=== PATIENT | male | born 1960 | race Caucasian/White ===

== ENCOUNTER 2025-01-21 10:22 | Inpatient (IN) | payer OTHER, SELFPAY ==
--- NOTE | ~2025-01-21 | CT_ITS ---
CLINICAL HISTORY: perirectal abscess R side worsening after I+D CT abdomen and pelvis with contrast Comparison: None provided Findings: Small hiatal hernia. No consolidation or effusion. Few small calcified granulomas in the spleen. There is a small accessory splenule. Focal fat infiltration in segment 4B of the liver. Pancreas, gallbladder and adrenal glands are within normal limits. No hydronephrosis. Symmetric contrast enhancement of the kidneys. Nonspecific mild bilateral perinephric stranding. Colonic diverticulosis without acute inflammation. No bowel obstruction, pneumatosis or pneumoperitoneum. Subcutaneous left gluteal phlegmon without rim enhancing abscess. No communication with the rectum or anus. No subcutaneous gas. Pelvic organs are within normal limits. Normal appendix. No acute fracture. Degenerative changes of the spine. IMPRESSION: Subcutaneous left gluteal phlegmon without rim enhancing abscess. No communication with the rectum or anus. No subcutaneous gas. This document has been electronically signed by: Leann Caldwell MD on 01/21/2025 19:12:26
--- NOTE | ~2025-01-21 | US_ITS ---
EXAMINATION: US RETROPERITONEAL LIMITED (RENAL ONLY) CLINICAL INFORMATION: New JOSEPH. COMPARISON: Correlated to CT dated January 21, 2025 TECHNIQUE: Real-time ultrasound kidneys using grayscale technique. FINDINGS: RIGHT KIDNEY: 12 x 6 x 6 cm (SAG x AP x TRV). Normal echotexture. Normal renal cortical thickness. No hydronephrosis. No gross solid or cystic lesion. LEFT KIDNEY: 13 x 6 x 5 cm (SAG x AP x TRV). Normal echotexture. No renal cortical thickness. No hydronephrosis. No gross solid or cystic lesion detected. US/US renal BI IMPRESSION: No hydronephrosis.. Electronically signed by: Juan Rabago MD 01/25/2025 09:48 AM EDT
[2025-01-21 10:25] VITALS: BP 143/76; PULSE 88; RESP 18; TEMP 36.6; O2SAT 98; BMI 27.1
[2025-01-21 10:42] LABS: Hematocrit 39.6 % (42.0-52.0); Hemoglobin 14.6 g/dl (14.0-18.0); Imm Gran Abs Auto 0.06 X10*3/uL (0.00-0.03); Imm Gran Pct Auto 0.5 % (0.0-0.4); Lymphocytes Absolute Auto 0.9 X10*3/uL (1.2-4.9); MANUAL DIFF FLAG SCAN; Mean Corpuscular HGB Conc 36.9 g/dl (31.0-36.0); Mean Corpuscular Hemoglobin 34.9 pg (27.0-33.0); Mean Corpuscular Volume 94.7 fL (80.0-98.0); NRBC Abs Auto 0.000 X10*3/uL (0.0-0.012); NRBC Pct Auto 0.0 /100WBC (0.0-0.2); Platelet Count 235 X10*3/uL (160-400); Red Blood Count 4.18 X10*6/uL (4.60-5.80); SCAN SMEAR FLAG 1; White Blood Count 13.2 X10*3/uL (4.8-10.8)
[2025-01-21 10:54] LABS: Anion Gap 14 (12-20); Blood Urea Nitrogen 5 mg/dL (9-16); Calcium 9.1 mg/dL (8.4-10.2); Carbon Dioxide 25 mmol/L (22-29); Chloride 91 mmol/L (96-108); Creatinine Clr Calc Pharmacy 126.0; Estimated Glomerular Filt Rate > 60; Potassium 4.4 mmol/L (3.3-5.1); Sodium 126 mmol/L (135-145)
[2025-01-21 11:52] LABS: Alanine Aminotransferase 39 U/L (0-40); Albumin Level 4.6 g/dL (3.5-5.0); Alkaline Phosphatase 70 U/L (39-117); Aspartate Amino Transferase 51 U/L (5-37); Total Protein 7.8 g/dL (6.5-8.0)
--- NOTE | 2025-01-21 12:10 | ED.WOUNDLAC ---
HPI - Wound/Laceration General Chief Complaint: Wound/Laceration Stated Complaint: Cellulitis of Buttocks states its infected Time Seen by Provider: 01/21/25 16:23 Source: patient and old records reviewed Mode of arrival: ambulatory Limitations: no limitations History of Present Illness ED Provider: ELENO HPI narrative: 65 yo male with PMH of HTN takes lisinopril, ETOH use disorder - denies prior withdrawal drank a few this AM he drinks 12+ beers a day. He notes 5 days of worsening boil on L buttock he went to urgent care yesterday s/p I+D with 3 doses of Augmentin so far. He arrives shaky but denies n/v and fevers. He notes he was sent again by UC today as they note it appears worse and are worried about deeper collection. Onset (ago): day(s) (5) Location: other (left buttock) Place: home Patient tetanus UTD: Yes Context: other Associated symptoms: pain Treatments prior to arrival: bandage and other (oral augmentin x 3) Related Data Allergies Allergy/AdvReac Type Severity Reaction Status Date / Time No Known Allergies Allergy Verified 01/21/25 10:29 Review of Systems Review of Systems: Constitutional : No Fever, No Chills ENT/Mouth : No sore throat, No Rhinorrhea Eyes: No Eye Pain, No Swelling, No Redness Cardiovascular : No Chest Pain, No SOB Respiratory : No Cough, No Sputum Gastrointestinal : No Nausea, No Vomiting, No Diarrhea, No abdominal Pain Genitourinary : No Dysuria, No Hematuria Musculoskeletal : No joint pain, No Myalgias, No Joint Swelling Skin : No Skin Lesions, positive skin rash Neuro : No Weakness, No Numbness, No Headache Psych : No Anxiety, No Depression Heme/Lymph: No Bruising, No Bleeding,No Lymphadenopathy Endocrine : No Polyuria, No Polydipsia All other systems reviewed and are negative [facility] Past Medical History Attestation statement: The following information was validated with the patient. Source: old records reviewed Medical History (Updated 01/21/25 @ 17:10 by Keturah Chauhan DO) Alcohol use disorder HTN (hypertension) Social History Social History (Updated 01/21/25 @ 17:03 by Keturah Chauhan DO) Patient Tobacco Use Status: Never used Tobacco Advance Directives: No Advance Directives Information Provided: Yes Do you have a plan to hurt others: No Plan Physical Exam Vital Signs: Vital Signs: Last Vital Signs Temp 98.2 F 01/21/25 17:21 Pulse 79 01/21/25 17:21 Resp 16 01/21/25 17:21 BP 155/91 H 01/21/25 17:21 Pulse Ox 97 01/21/25 17:21 O2 Del Method Room Air 01/21/25 17:21 BMI result Body Mass Index 27.1 Appearance: Alert. Oriented X3. Mild acute distress. Eyes: Pupils equal, round and reactive to light. ENT: Pharynx normal. Tongue fasciculations Neck: Normal inspection. Neck supple. CVS: tachycardic heart rate and rhythm. Pulses normal. Respiratory: No respiratory distress. Breath sounds normal. Abdomen: Soft and nontender. Buttocks: L buttock large indurated area with packing and still purulence noted very ttp no crepitus and no necrosis noted Skin: Skin warm and dry. Normal skin color. Extremities: No lower extremity edema. Neuro: Oriented X 3. No motor deficit. No sensory deficit. CN2-12 intact Course Course Course Narrative: 01/21 1210 Melina Sanchez APRN This is a rapid medical exam. Defer additional HPI, ROS and PE to primary provider. This is a 65-year-old male who has a past medical history of hypertension, GERD, daily alcohol use who presents the ER with complaints of abscess in the left buttocks for several days. Patient reports that he was seen at urgent care yesterday and had an incision and drainage of the left buttocks. He was placed on antibiotic and he has taken 3 doses of the antibiotic. He went today for a wound check per instruction of the urgent care and they felt that there was increased redness and swelling of the area which tract towards the scrotal region. Therefore patient was referred into the emergency room. Will order lab including blood cultures, lactic acid. VSS Medications Administered Discontinued Medications Generic Name Dose Route Start Last Admin Trade Name Freq PRN Reason Stop Dose Admin Diazepam 5 mg 01/21/25 16:34 01/21/25 17:02 Diazepam 10 Mg/2 Ml Cartridge IVPUSH 01/21/25 16:35 5 mg STAT STA Administration Lactated Ringer's 1,000 mls @ 999 mls/hr 01/21/25 16:34 01/21/25 17:01 Lr IV 01/21/25 17:34 999 mls/hr .Q1H1M ONE Administration Piperacillin Sod/Tazobactam 50 mls @ 100 mls/hr 01/21/25 16:34 01/21/25 19:04 Sod 3.375 gm/ Sodium Chloride IV 01/21/25 17:03 Infused ONCE ONE Infusion Thiamine HCl 200 mg/ Sodium 102 mls @ 204 mls/hr 01/21/25 16:34 01/21/25 19:04 Chloride IV 01/21/25 17:03 Infused ONCE ONE Infusion Magnesium Sulfate 2 gm in 50 mls @ 25 mls/hr 01/21/25 16:34 01/21/25 18:08 Magnesium Sulfate/H2o IV 01/21/25 18:33 25 mls/hr ONCE ONE Administration Vancomycin HCl 2,000 mg in 500 mls @ 250 mls/hr 01/21/25 16:34 01/21/25 19:28 Vancomycin/Ns IV 01/21/25 18:33 250 mls/hr ONCE ONE Administration Iohexol 100 ml 01/21/25 17:53 01/21/25 17:53 Iohexol 350 Mg/Ml 100 Ml Infus..Btl IV 01/21/25 17:54 85 ml ONCE ONE Administration Phenobarbital Sodium 310 mg 01/21/25 17:00 01/21/25 19:25 Phenobarbital Sodium 130 Mg/Ml Im Once IM 01/21/25 17:01 310 mg ONCE ONE Administration Medical Decision Making Medical Decision Making MDM Narrative: 65 yo male with PMH of HTN takes lisinopril, ETOH use disorder here with c/o abscess that will need CT scan for deeper infection. I am also worried about his ETOH withdrawal symptoms I am going to start IV abx for abscess, IV thiamine, IV magnesium, IV valium, phenobarb protocol. He likely has abscess. His Na is likely low from beer potomania - gentle fluids ordered. Planned admit Differential Diagnosis Differential Diagnoses: The differential diagnosis associated with the presentation includes ETOh use disorder, withdrawal, lyte abnormality, abscess Admission/Observation Consideration of admission/observation: Escalation of care including admission/observation considered needs admission for low Na, ETOH withdrawal, abscess with IV abx Consult Healthcare Provider Management of the patient was discussed with: Hospitalist Lab Data MDM Lab Attestation statement: I reviewed the patient's lab results. 01/21/25 10:34 01/21/25 10:34 Labs: Lab Results 01/21/25 01/21/25 Range/Units 10:34 11:30 WBC 13.2 H (4.8-10.8) X10*3/uL RBC 4.18 L (4.60-5.80) X10*6/uL Hgb 14.6 (14.0-18.0) g/dl Hct 39.6 L (42.0-52.0) % MCV 94.7 (80.0-98.0) fL MCH 34.9 H (27.0-33.0) pg MCHC 36.9 H (31.0-36.0) g/dl RDW 12.2 (11.0-16.0) % Plt Count 235 (160-400) X10*3/uL MPV 8.9 L (9.4-12.4) fL Immature Gran % (Auto) 0.5 H (0.0-0.4) % Neut % (Auto) 77.9 H (45-73) % Lymph % (Auto) 6.8 L (20-40) % [place] % (Auto) 14.1 H (2-11) % Eos % (Auto) 0.2 (0-4) % Baso % (Auto) 0.5 (0-2) % Lymph # (Auto) 0.9 L (1.2-4.9) X10*3/uL [place] # (Auto) 1.9 H (0.1-1.2) X10*3/uL Eos # (Auto) 0.0 (0.0-0.4) X10*3/uL Baso # (Auto) 0.1 (0.0-0.2) X10*3/uL Abs Immat Gran (auto) 0.06 H (0.00-0.03) X10*3/uL Absolute Neuts (auto) 10.2 H (2.0-8.3) x10*3/uL Absolute Nucleated RBC 0.000 (0.0-0.012) X10*3/uL Nucleated RBC % (auto) 0.0 (0.0-0.2) /100WBC Smear Tech's Comments VERIFIED Sodium 126 L (135-145) mmol/L Potassium 4.4 (3.3-5.1) mmol/L Chloride 91 L (96-108) mmol/L Carbon Dioxide 25 (22-29) mmol/L Anion Gap 14 (12-20) BUN 5 L (9-16) mg/dL Creatinine 0.65 (0.5-1.4) mg/dL Estim Creat Clear Calc 126.0 Estimated GFR > 60 Random Glucose 109 (60-115) mg/dL Lactic Acid 1.5 (0.5-2.0) mmol/L Calcium 9.1 (8.4-10.2) mg/dL Total Bilirubin 2.4 H (0.0-1.0) mg/dL Direct Bilirubin 0.7 H (0.0-0.5) mg/dL AST 51 H (5-37) U/L ALT 39 (0-40) U/L Alkaline Phosphatase 70 (39-117) U/L C-Reactive Protein 8.17 H (< or = 0.50) mg/dL Total Protein 7.8 (6.5-8.0) g/dL Albumin 4.6 (3.5-5.0) g/dL Ethyl Alcohol 114 mg/dL Independent Interpretation I performed an independent interpretation of an: EKG and CT Scan Interpretation: Rate: 78 Rhythm: NSR [place]: normal Normal P waves. Normal ZACHARY. Normal QRS complex. ST T wave : normal no SUZI qTC: 460 prior studies: no acute ischemia The study has been interpreted contemporaneously by me. . Radiology Impression Discussion of test interpretation with radiology: I have reviewed the radiologist's reading. External Record Review External record reviewed: Outpatient record Critical Care Time Critical Care Time Critical Care Time: Yes Total Critical Care Time: 45 Attestation: Time is exclusive of separately billable procedures. Time includes: direct patient care, patient reassessment, coordination of patient care, interpretation of data (laboratory data, pulse oximetry, arterial blood gases and chest xrays), review of patient's medical records, medical consultation and documentation of patient care. IV magnesium, phenobarb protocol. Procedures excluded from critical care time: electrocardiography. Discharge Plan Discharge Clinical Impression: Acute hyponatremia, Alcohol abuse with withdrawal, Abscess Patient Disposition: Admitted As Inpatient Print Language: Latvian
[2025-01-21] MEDS: Lactated Ringers 1,000 ML 999 ML IV (17:01)
[2025-01-21] MEDS: diazePAM 10 MG/2 ML CARTRIDGE 5 MG IVPUSH (17:02)
[2025-01-21] MEDS: Thiamine HCL 200 MG in 0.9 % Sodium Chloride 100 ML 204 MG IV (17:07)
--- NOTE | 2025-01-21 17:09 | ECG_ITS ---
Test Reason : ETOH withdrawal Blood Pressure : */* mmHG Vent. Rate : 78 BPM Atrial Rate : 78 BPM P-R Int : 166 ms QRS Dur : 118 ms QT Int : 404 ms P-R-T Axes : 40 21 39 degrees QTcB Int : 460 ms Normal sinus rhythm Non-specific intra-ventricular conduction delay Borderline ECG No previous ECGs available Referred By: Keturah Chauhan Electronically Signed By: Chang Rice
[2025-01-21 17:21] VITALS: BP 155/91; PULSE 79; RESP 16; TEMP 36.8; O2SAT 97
[2025-01-21] MEDS: iohexoL 350 MG/ML 100 ML INFUS..BTL IV (17:53)
[2025-01-21 18:00] VITALS: BP 158/86; PULSE 87; RESP 15; TEMP 37.2; O2SAT 100
[2025-01-21] MEDS: Magnesium Sulfate/H2O 2 GM/50 ML PIGGYBACK IV (18:08)
[2025-01-21] MEDS: PHENobarbitaL sodium 130 MG/ML IM ONCE 310 MG IM (19:25)
[2025-01-21] MEDS: vancomycin/NS 2,000 MG/500 ML PLAST..BAG 250 MG IV (19:28)
--- NOTE | 2025-01-21 20:22 | PHA.MEDREC ---
Addendum entered by Maryann Correa RPh 01/21/25 20:23: MED REC REVIEWED BY [facility] Original Note: Pharmacy Consult ? Medication Reconciliation Pharmacy has completed the medication reconciliation. Spoke to patient to confirm med list.
[2025-01-21 20:37] VITALS: BP 138/81; PULSE 71; RESP 15; TEMP 37; O2SAT 95
--- NOTE | 2025-01-21 20:47 | PC.NURSE ---
RN assumed care for pt at 1900. Meds were given per AUG.
--- NOTE | 2025-01-21 21:03 | PC.NURSE ---
RN called pharmacy to reschedule phenobarb on AUG as first dose was given after the scheduled time. Pharmacist to change time of the other doses.
--- NOTE | 2025-01-21 21:52 | PM.IMHP ---
History of Present Illness Date of Service: 01/21/25 Attending physician on admission: Mallory Rhoades Chief Complaint: Worsening abscess Patient is a 65-year-old male with a past medical history significant for hypertension and alcohol abuse, who presented to the ED due to a worsening abscess in the left gluteal cleft that was drained yesterday at urgent care after having it for 5 days. The patient followed up today for wound packing change and recheck and he was told that surrounding redness has increased and they recommended he report to the emergency department. He was taking augmentin and has taken 3 doses. He denies any increased pain, fever, chills, nausea or vomiting. He drinks about 12 beers a day, last consumed a few this morning. no hx of etoh withdrawal or seizures. reports that he was hospitalized for 2 knee surgeries and has not had withdrawal during either stay. Review of Systems Constitutional: Constitutional: Denies chills, Denies fatigue, Denies fever(s) and Denies headache(s) Eyes: Eyes: Denies change in vision ENT: Denies headache(s), Denies nasal discharge and Denies sore throat Cardiovascular: Cardiovascular: Denies chest pain, Denies rapid heart rate, Denies leg edema, Denies lightheadedness and Denies dyspnea Respiratory: Respiratory: Denies chest congestion, Denies cough, Denies dyspnea and Denies wheezing Gastrointestinal: Gastrointestinal: Denies abdominal pain, Denies diarrhea, Denies nausea and Denies vomiting Genitourinary: Genitourinary: Denies dysuria, Denies urinary frequency and Denies urinary urgency Musculoskeletal: Musculoskeletal: Denies myalgias Integumentary/Breasts: Skin/Breast: Reports as per HPI Neurologic: Denies confusion and Denies headache(s) Psychiatric: Psychiatric: Denies confusion Endocrine: Endocrine: Denies fatigue Hematologic/Lymphatic: Hematologic/Lymphatic: Denies easy bleeding and Denies easy bruising Allergic/Immunologic: Allergic/Immunologic: Denies wheezing PMFSH Medical History Alcohol use disorder HTN (hypertension) Functional capacity: independent ambulation Social History (Updated 01/21/25 @ 17:03 by Keturah Chauhan DO) Patient Tobacco Use Status: Never used Tobacco Advance Directives: No Advance Directives Information Provided: Yes Do you have a plan to hurt others: No Plan Nutrition Risks: No Nutritional Risk Narrative: No smoking or drug use. Consumes 12+ beers daily Meds Allergies Allergy/AdvReac Type Severity Reaction Status Date / Time No Known Allergies Allergy Verified 01/21/25 10:29 Active Medications: Current Medications Acetaminophen (Acetaminophen 325 Mg Tablet) 650 mg PO Q6H PRN PRN Reason: Pain, Mild 1-3,fever,headache Calcium Carbonate (Calcium Carbonate 750 Mg Tab.Chew) 750 mg PO Q4H PRN PRN Reason: Heartburn Enoxaparin Sodium (Enoxaparin Sodium 40 Mg/0.4 Ml Syringe) 40 mg SUBCUT Q24H [facility] Folic Acid (Folic Acid 1 Mg Tablet) 1 mg PO DAILY [facility] Stop: 01/25/25 08:59 Lisinopril (Lisinopril 20 Mg Tablet) 20 mg PO DAILY [facility]; Protocol Magnesium Hydroxide (Milk Of Magnesia 30 Ml Oral.Susp) 30 ml PO DAILY PRN PRN Reason: Constipation Melatonin (Melatonin 3 Mg Tablet) 6 mg PO BEDTIME PRN PRN Reason: Insomnia Multivitamins/Vitamin C (Multivitamin Tablet) 1 tab PO DAILY [facility] Stop: 01/25/25 08:59 Omeprazole (Omeprazole 20 Mg Capsule.Dr) 20 mg PO DAILY [facility] Ondansetron HCl (Ondansetron Hcl 4 Mg/2 Ml Vial) 4 mg IVPUSH Q8H PRN PRN Reason: Nausea and Vomiting Oxycodone HCl (Oxycodone Hcl Immed Release 5 Mg Tablet) 5 mg PO Q6H PRN PRN Reason: Pain, Severe (Pain Scale 7-10) Pharmacy Consult (Consult Rx Etoh Phenob Im/Po) 1 each MISCELLANE ONCE PRN; Protocol PRN Reason: Consult order Phenobarbital (Phenobarbital 30 Mg Tablet) 60 mg PO BID [facility] Stop: 01/23/25 21:01 Phenobarbital (Phenobarbital 30 Mg Tablet) 30 mg PO BID [facility] Stop: 01/25/25 21:01 Phenobarbital (Phenobarbital 30 Mg Tablet) 30 mg PO DAILY [facility] Stop: 01/27/25 09:01 Phenobarbital Sodium (Phenobarbital Sodium 130 Mg/Ml Vial Im Q3hx2) 232 mg IM Q3H [facility] Stop: 01/22/25 01:31 Sodium Chloride (0.9 % Sodium Chloride Flush 3 Ml Syringe) 3 ml IVFLUSH QSHIFT [facility] Thiamine HCl (Thiamine Hcl 100 Mg Tablet) 100 mg PO DAILY [facility] Stop: 01/25/25 08:59 Home Medications ?Medication ?Instructions ?Recorded ?Confirmed ?Last Taken ?Type amoxicillin 875 mg-potassium 1 tab PO BID 01/21/25 01/21/25 01/21/25 History clavulanate 125 mg tablet lisinopril 20 mg tablet 20 mg PO DAILY 01/21/25 01/21/25 01/21/25 History omeprazole 20 mg tablet,delayed 20 mg PO DAILY 01/21/25 01/21/25 01/21/25 History release Physical Exam Vital Signs and Narrative: Vital Signs: Last Vital Signs Temp 98.6 F 01/21/25 20:37 Pulse 71 01/21/25 20:37 Resp 15 01/21/25 20:37 BP 138/81 01/21/25 20:37 Pulse Ox 95 01/21/25 20:37 O2 Del Method Room Air 01/21/25 20:37 BMI result Body Mass Index 27.1 General: AOx3, no acute distress Resp: CTA bilaterally CVS: S1, S2, RRR GI: +BS, NT, no distention Skin: Warm, dry. erythema without extension past the border drawn by urgent care. painful to touch, mild increased warmth. dressing with serosanguineous fluid, no purulent fluid. Wound packing in place. Dressing changed. Neuro: Cranial nerves II-XII grossly intact bilaterally. Motor grossly intact bilaterally Extremities: No LE edema Psych: Appropriate affect Const: General: No confusion Orientation/consciousness: No confusion Neuro: General: No confusion Results Labs 01/21/25 10:34 01/21/25 10:34 Labs: Laboratory Results - last 24 hr 01/21/25 01/21/25 10:34 11:30 MCV 94.7 MCH 34.9 H MCHC 36.9 H RDW 12.2 Plt Count 235 MPV 8.9 L Immature Gran % (Auto) 0.5 H Neut % (Auto) 77.9 H Lymph % (Auto) 6.8 L [place] % (Auto) 14.1 H Eos % (Auto) 0.2 Baso % (Auto) 0.5 Lymph # (Auto) 0.9 L [place] # (Auto) 1.9 H Eos # (Auto) 0.0 Baso # (Auto) 0.1 Abs Immat Gran (auto) 0.06 H Absolute Neuts (auto) 10.2 H Absolute Nucleated RBC 0.000 Nucleated RBC % (auto) 0.0 Smear Tech's Comments VERIFIED Anion Gap 14 Estim Creat Clear Calc 126.0 Estimated GFR > 60 Random Glucose 109 Lactic Acid 1.5 Calcium 9.1 Total Bilirubin 2.4 H Direct Bilirubin 0.7 H AST 51 H ALT 39 Alkaline Phosphatase 70 C-Reactive Protein 8.17 H Total Protein 7.8 Albumin 4.6 Ethyl Alcohol 114 Assessment and Plan (1) Cellulitis: Status: Acute (2) Acute hyponatremia: Status: Acute (3) Alcohol abuse with withdrawal: Status: Acute (4) Hypomagnesemia: Status: Acute Plan Patient is a 65-year-old male with a past medical history significant for hypertension and alcohol abuse, who presented to the ED due to a worsening abscess in the left gluteal cleft that was drained yesterday at urgent care after having it for 5 days. cellulitis - recent I+D of abscess L gluteal cleft yesterday at urgent care with failed outpt abx, extension past border on recheck this morning - WBC 13.2, vitals stable, lactic acid normal, blood cultures x2 pending, no sepsis - abdominopelvic CT with subcutaneous left gluteal phlegmon without rim enhancing abscess. No communication with the rectum or anus. No subcutaneous gas. - CRP elevated at 8.17 - EKG with NSR - patient given 1 L LR in ED - started on vancomycin and Zosyn, continue - wound care consult - follow CBC and BMP Acute hyponatremia and hypochloremia - hyponatremia likely secondary to beer potomania - sodium 126, chloride 91 - given 1 L LR in ED - monitor BMP Alcohol abuse with withdrawal - alcohol level 114 - patient exhibiting symptoms of withdrawal in ED with CIWA scores elevated - started on phenobarb - given IV thiamine - monitor CIWA - seizure precautions - addiction med consult - folic acid, thiamine, multivitamin daily - monitor on telemetry - alcohol cessation encouraged Hypomagnesemia - secondary to alcohol use - repleted with 2 g IV HTN - continue lisinopril DNI, discussed with patient VTE prophylaxis: Lovenox Patient with cellulitis with failed outpatient treatment, complicated by alcohol withdrawal, requiring admission for at least 2 midnights stay for IV antibiotics and monitoring. Quality Stroke Does the patient have a stroke diagnosis?: No VTE Prior VTE?: No VTE Risk Level:: Medical - moderate - high VTE Device Contraindication: Treatment Not Indicated VTE Drug Contraindication: N/A - Med Ordered
[2025-01-21 22:00] VITALS: BP 130/80; PULSE 80; RESP 15; TEMP 36.8; O2SAT 99
--- NOTE | 2025-01-21 22:40 | PHA.PROG ---
Admission Date/Time: January 21, 2025 19:24 Indication: Skin Weight in k.718 kg Adjusted body weight in Kg: [place] body weight in Kg: Obesity Dosing Indication % IBW: Serum Creatinine - Last 168 Hours 01/21/25 10:34 Creatinine 0.65 Estimated CrCl and GFR - Last 168 Hours 01/21/25 10:34 Estim Creat Clear Calc 126.0 Estimated GFR > 60 Vancomycin Loading Dose: 2000 mg Current Vancomycin Dosing Regimen: 1250 mg Q12H Vancomycin Monitoring using AUC goal of 400 - 600 range with trough as surrogate marker: Predicted AUC 469 and trough 14 Date and Time for next Vancomycin Level to be drawn: 01/23 @0600 Pharmacist Comments on Vancomycin Plan: Vancomycin dosing will take advantage of [employer] as a clinical decision support tool that uses Bayesian modeling to calculate individual patient's pharmacokinetic parameters and forecast the patient's drug concentration time course with the target goal AUC 24 range of 400 - 600 mg/L/hr.
[2025-01-21] MEDS: 0.9 % Sodium Chloride Flush 3 ML SYRINGE IVFLUSH (23:57)
[2025-01-21] MEDS: PHENobarbitaL sodium 130 MG/ML VIAL IM Q3Hx2 232 MG IM (23:57)
[2025-01-22] VITALS (7 sets, daily range): BP systolic 129–162; BP diastolic 80–94; PULSE 55–87; RESP 14–18; TEMP 36–37.1; O2SAT 95–99; BMI 27.7
[2025-01-22] MEDS: PHENobarbitaL sodium 130 MG/ML VIAL IM Q3Hx2 232 MG IM (02:08)
--- NOTE | 2025-01-22 05:11 | HO.SKINPHOTO ---
Location: L inner glute Category: Stage: Length: Width: Depth: cm Location: Category: Stage: Length: Width: Depth: cm Location: Category: Stage: Length: Width: Depth: cm Location: Category: Stage: Length: Width: Depth: cm Location: Category: Stage: Length: Width: Depth: cm Location: Category: Stage: Length: Width: Depth: cm
[2025-01-22 07:13] LABS: Hematocrit 38.4 % (42.0-52.0); Hemoglobin 14.2 g/dl (14.0-18.0); Imm Gran Abs Auto 0.05 X10*3/uL (0.00-0.03); Imm Gran Pct Auto 0.7 % (0.0-0.4); Lymphocytes Absolute Auto 0.9 X10*3/uL (1.2-4.9); MANUAL DIFF FLAG SCAN; Mean Corpuscular HGB Conc 37.0 g/dl (31.0-36.0); Mean Corpuscular Hemoglobin 34.8 pg (27.0-33.0); Mean Corpuscular Volume 94.1 fL (80.0-98.0); NRBC Abs Auto 0.000 X10*3/uL (0.0-0.012); NRBC Pct Auto 0.0 /100WBC (0.0-0.2); PLT CLUMP 1; Red Blood Count 4.08 X10*6/uL (4.60-5.80); SCAN SMEAR FLAG 1
[2025-01-22 07:16] LABS: Anion Gap 17 (12-20); Blood Urea Nitrogen 4 mg/dL (9-16); Calcium 8.8 mg/dL (8.4-10.2); Carbon Dioxide 22 mmol/L (22-29); Chloride 97 mmol/L (96-108); Creatinine Clr Calc Pharmacy 132.1; Estimated Glomerular Filt Rate > 60; Potassium 4.8 mmol/L (3.3-5.1); Sodium 131 mmol/L (135-145)
[2025-01-22 07:28] LABS: Platelet Count 218 X10*3/uL (160-400); White Blood Count 7.3 X10*3/uL (4.8-10.8)
--- NOTE | 2025-01-22 07:28 | P.PNIM_ITS ---
Subjective Subjective Date of Service: 01/22/25 Interval History: Seen and examined this morning Interval history: Denies pain. Ongoing copious drainage. S/p I&D 2 days ago. Now on IV antibiotics. History alcohol use disorder, denies withdrawal symptoms. Review of Systems Review of Systems: Yes all other systems are reviewed and are negative Physical Exam 2 Exam: Exam: Constitutional - Awake and Alert, No apparent distress Eyes - PERRLA, EOMI Cardiovascular - S1S2, RRR, No edema Respiratory - Normal lung expansion, Normal respiratory effort, No respiratory distress, CTA bilaterally Extremities - no calf tenderness bilaterally, no swelling Skin - Warm/Dry . Golfball sized draining abscess with surrounding erythema with purulent drainage centrally as well as punctate areas of fluctuance the left gluteal cleft Neurological - Alert & oriented x3, CN II-XII in tact, 5/5 strength BUE and BLE Psychological - Appropriate affect Vital Signs: Vital Signs: Last Vital Signs Temp 98.7 F 01/22/25 06:00 Pulse 65 01/22/25 06:00 Resp 15 01/22/25 06:00 BP 134/87 01/22/25 06:00 Pulse Ox 95 01/22/25 06:00 O2 Del Method Room Air 01/22/25 06:00 BMI result Body Mass Index 27.1 Objective Data Active Medications Acetaminophen (Acetaminophen 325 Mg Tablet) 650 mg PO Q6H PRN PRN Reason: Pain, Mild 1-3,fever,headache Calcium Carbonate (Calcium Carbonate 750 Mg Tab.Chew) 750 mg PO Q4H PRN PRN Reason: Heartburn Enoxaparin Sodium (Enoxaparin Sodium 40 Mg/0.4 Ml Syringe) 40 mg SUBCUT Q24H [facility] Last Admin: 01/21/25 23:56 Dose: 40 mg Documented By: GERDA Folic Acid (Folic Acid 1 Mg Tablet) 1 mg PO DAILY [facility] Stop: 01/25/25 08:59 Piperacillin Sod/Tazobactam (Sod 3.375 gm/ Sodium Chloride) 50 mls @ 100 mls/hr IV Q6H [facility] Last Admin: 01/22/25 06:04 Dose: 100 mls/hr Documented By: CHARLI Vancomycin HCl 1,250 mg/ (Sodium Chloride) 250 mls @ 166.667 mls/hr IV Q12H [facility] Lisinopril (Lisinopril 20 Mg Tablet) 20 mg PO DAILY [facility]; Protocol Magnesium Hydroxide (Milk Of Magnesia 30 Ml Oral.Susp) 30 ml PO DAILY PRN PRN Reason: Constipation Melatonin (Melatonin 3 Mg Tablet) 6 mg PO BEDTIME PRN PRN Reason: Insomnia Multivitamins/Vitamin C (Multivitamin Tablet) 1 tab PO DAILY [facility] Stop: 01/25/25 08:59 Omeprazole (Omeprazole 20 Mg Capsule.Dr) 20 mg PO DAILY [facility] Ondansetron HCl (Ondansetron Hcl 4 Mg/2 Ml Vial) 4 mg IVPUSH Q8H PRN PRN Reason: Nausea and Vomiting Oxycodone HCl (Oxycodone Hcl Immed Release 5 Mg Tablet) 5 mg PO Q6H PRN PRN Reason: Pain, Severe (Pain Scale 7-10) Pharmacy Consult (Consult Rx Etoh Phenob Im/Po) 1 each MISCELLANE ONCE PRN; Protocol PRN Reason: Consult order Pharmacy Consult (Consult Rx Vancomycin Dosing) 1 each MISCELLANE DAILY PRN PRN Reason: Consult order Phenobarbital (Phenobarbital 30 Mg Tablet) 60 mg PO BID [facility] Stop: 01/23/25 21:01 Phenobarbital (Phenobarbital 30 Mg Tablet) 30 mg PO BID [facility] Stop: 01/25/25 21:01 Phenobarbital (Phenobarbital 30 Mg Tablet) 30 mg PO DAILY [facility] Stop: 01/27/25 09:01 Sodium Chloride (0.9 % Sodium Chloride Flush 3 Ml Syringe) 3 ml IVFLUSH QSHIFT [facility] Last Admin: 01/21/25 23:57 Dose: 3 ml Documented By: GERDA Thiamine HCl (Thiamine Hcl 100 Mg Tablet) 100 mg PO DAILY [facility] Stop: 01/25/25 08:59 Labs 01/22/25 06:38 01/22/25 06:38 Labs: Laboratory Results - last 24 hr 01/21/25 01/21/25 01/22/25 10:34 11:30 06:38 MCV 94.7 94.1 MCH 34.9 H 34.8 H MCHC 36.9 H 37.0 H RDW 12.2 12.1 Plt Count 235 MPV 8.9 L Immature Gran % (Auto) 0.5 H Neut % (Auto) 77.9 H Lymph % (Auto) 6.8 L [place] % (Auto) 14.1 H Eos % (Auto) 0.2 Baso % (Auto) 0.5 Lymph # (Auto) 0.9 L [place] # (Auto) 1.9 H Eos # (Auto) 0.0 Baso # (Auto) 0.1 Abs Immat Gran (auto) 0.06 H Absolute Neuts (auto) 10.2 H Absolute Nucleated RBC 0.000 Nucleated RBC % (auto) 0.0 Smear Tech's Comments VERIFIED Anion Gap 14 17 Estim Creat Clear Calc 126.0 132.1 Estimated GFR > 60 > 60 Random Glucose 109 74 Lactic Acid 1.5 Calcium 9.1 8.8 Total Bilirubin 2.4 H Direct Bilirubin 0.7 H AST 51 H ALT 39 Alkaline Phosphatase 70 C-Reactive Protein 8.17 H Total Protein 7.8 Albumin 4.6 Ethyl Alcohol 114 Assessment and Plan (1) Alcohol abuse with withdrawal: Status: Acute (2) Abscess: Status: Acute (3) Cellulitis: Status: Acute Plan Patient is a 65-year-old male with a past medical history significant for hypertension and alcohol abuse, who presented to the ED due to a worsening abscess in the left gluteal cleft that was drained yesterday at urgent care after having it for 5 days. Acute cellulitis left gluteal cleft - recent I+D of abscess L gluteal cleft 01/20 at urgent care with failed outpt abx - WBC 13.2-->7.3, vitals stable, lactic acid normal, blood cultures x2 pending, no sepsis - abdominopelvic CT with subcutaneous left gluteal phlegmon without rim enhancing abscess. No communication with the rectum or anus. No subcutaneous gas. - CRP elevated at 8.17 - continue vanc and zosyn (initiated 01/21) - wound care consult - follow CBC and BMP Acute hyponatremia and hypochloremia - hyponatremia likely secondary to beer potomania - sodium 126, chloride 91 - given 1 L LR in ED - resolved following ivf - monitor BMP Alcohol abuse with withdrawal - alcohol level 114, elevated CIWA in ED - continue phenobarb per protocol, monitor CIWA - continue folic acid, thiamine, multivitamin - seizure precautions - addiction med consult - monitor on telemetry - alcohol cessation encouraged Hypomagnesemia - secondary to alcohol use - repleted with 2 g IV HTN - continue lisinopril DNI, discussed with patient VTE prophylaxis: Lovenox Patient with cellulitis with failed outpatient treatment, complicated by alcohol withdrawal, requiring admission for at least 2 midnights stay for IV antibiotics and monitoring. Quality Stroke Does the patient have a stroke diagnosis?: No VTE Prior VTE?: No VTE Risk Level:: Medical - moderate - high VTE Device Contraindication: Treatment Not Indicated VTE Drug Contraindication: N/A - Med Ordered
[2025-01-22] MEDS: 0.9 % Sodium Chloride Flush 3 ML SYRINGE IVFLUSH ×3 (08:57→23:01)
--- NOTE | 2025-01-22 15:05 | MHC.CM.PN ---
Pt self-care, lives at home with his son. Pt will arrange his own transport home at discharge. PCP: Dr. Travis Jaffe
--- NOTE | 2025-01-23 00:01 | PC.NURSE ---
Patient scheduled medications administered late due to tech writer/primary RN in a prolonged rapid response.
[2025-01-23 03:03] VITALS: PULSE 59; RESP 18; TEMP 36; O2SAT 99
[2025-01-23 07:38] VITALS: BP 164/82; PULSE 61; RESP 20; TEMP 36.3; O2SAT 97
[2025-01-23 07:46] LABS: MANUAL DIFF FLAG NO
[2025-01-23 07:53] LABS: Hematocrit 41.8 % (42.0-52.0); Hemoglobin 14.9 g/dl (14.0-18.0); Imm Gran Abs Auto 0.04 X10*3/uL (0.00-0.03); Imm Gran Pct Auto 0.5 % (0.0-0.4); Lymphocytes Absolute Auto 1.2 X10*3/uL (1.2-4.9); Mean Corpuscular HGB Conc 35.6 g/dl (31.0-36.0); Mean Corpuscular Hemoglobin 34.4 pg (27.0-33.0); Mean Corpuscular Volume 96.5 fL (80.0-98.0); NRBC Abs Auto 0.000 X10*3/uL (0.0-0.012); NRBC Pct Auto 0.0 /100WBC (0.0-0.2); Platelet Count 237 X10*3/uL (160-400); Red Blood Count 4.33 X10*6/uL (4.60-5.80); White Blood Count 7.3 X10*3/uL (4.8-10.8)
[2025-01-23] MEDS: 0.9 % Sodium Chloride Flush 3 ML SYRINGE IVFLUSH ×3 (08:16→20:52)
[2025-01-23 08:21] LABS: Alanine Aminotransferase 31 U/L (0-40); Albumin Level 4.0 g/dL (3.5-5.0); Alkaline Phosphatase 62 U/L (39-117); Anion Gap 15 (12-20); Aspartate Amino Transferase 54 U/L (5-37); Blood Urea Nitrogen 7 mg/dL (9-16); Calcium 9.0 mg/dL (8.4-10.2); Carbon Dioxide 26 mmol/L (22-29); Chloride 98 mmol/L (96-108); Creatinine Clr Calc Pharmacy 109.2; Estimated Glomerular Filt Rate > 60; Potassium 3.8 mmol/L (3.3-5.1); Sodium 135 mmol/L (135-145); Total Protein 7.0 g/dL (6.5-8.0)
--- NOTE | 2025-01-23 09:10 | P.EN_ITS ---
Event Note Date of Service: 01/23/25 Event Note: Addiction consult placed for patient with alcohol withdrawal Chart reviewed. Patient seen by behavioral health counselor Declining any intervention CIWA scores 0 Rec:thiamine and folic acid at discharge no other follow p indicated at this time Time Spent With Patient Time: Total time managing care of this patient today ____ minutes.
--- NOTE | 2025-01-23 11:32 | P.PNIM_ITS ---
Subjective Subjective Date of Service: 01/23/25 Interval History: abscess stable Physical Exam 2 Exam: Exam: Constitutional - Awake and Alert, No apparent distress Eyes - PERRLA, EOMI Cardiovascular - S1S2, RRR, No edema Respiratory - Normal lung expansion, Normal respiratory effort, No respiratory distress, CTA bilaterally Extremities - no calf tenderness bilaterally, no swelling Skin - Warm/Dry . Golfball sized draining abscess with surrounding erythema with purulent drainage centrally as well as punctate areas of fluctuance the left gluteal cleft Neurological - Alert & oriented x3, CN II-XII in tact, 5/5 strength BUE and BLE Psychological - Appropriate affect Vital Signs: Vital Signs: Last Vital Signs Temp 97.3 F 01/23/25 07:38 Pulse 61 01/23/25 07:38 Resp 20 01/23/25 07:38 BP 164/82 H 01/23/25 07:38 Pulse Ox 97 01/23/25 07:38 O2 Del Method Room Air 01/23/25 07:38 BMI result Body Mass Index 27.7 Objective Data Active Medications Acetaminophen (Acetaminophen 325 Mg Tablet) 650 mg PO Q6H PRN PRN Reason: Pain, Mild 1-3,fever,headache Calcium Carbonate (Calcium Carbonate 750 Mg Tab.Chew) 750 mg PO Q4H PRN PRN Reason: Heartburn Enoxaparin Sodium (Enoxaparin Sodium 40 Mg/0.4 Ml Syringe) 40 mg SUBCUT Q24H [facility] Last Admin: 01/22/25 22:57 Dose: 40 mg Documented By: GABRIEL Folic Acid (Folic Acid 1 Mg Tablet) 1 mg PO DAILY [facility] Stop: 01/25/25 08:59 Last Admin: 01/23/25 08:15 Dose: 1 mg Documented By: CARLY Piperacillin Sod/Tazobactam (Sod 3.375 gm/ Sodium Chloride) 50 mls @ 100 mls/hr IV Q6H [facility] Last Infusion: 01/23/25 06:34 Dose: Infused Documented By: GABRIEL Vancomycin HCl 1,250 mg/ (Sodium Chloride) 250 mls @ 166.667 mls/hr IV Q12H [facility] Last Infusion: 01/23/25 10:00 Dose: Infused Documented By: CARLY Lisinopril (Lisinopril 20 Mg Tablet) 20 mg PO DAILY [facility]; Protocol Last Admin: 01/23/25 08:15 Dose: 20 mg Documented By: CARLY Magnesium Hydroxide (Milk Of Magnesia 30 Ml Oral.Susp) 30 ml PO DAILY PRN PRN Reason: Constipation Melatonin (Melatonin 3 Mg Tablet) 6 mg PO BEDTIME PRN PRN Reason: Insomnia Multivitamins/Vitamin C (Multivitamin Tablet) 1 tab PO DAILY [facility] Stop: 01/25/25 08:59 Last Admin: 01/23/25 08:15 Dose: 1 tab Documented By: CARLY Omeprazole (Omeprazole 20 Mg Capsule.Dr) 20 mg PO DAILY [facility] Last Admin: 01/23/25 08:15 Dose: 20 mg Documented By: CARLY Ondansetron HCl (Ondansetron Hcl 4 Mg/2 Ml Vial) 4 mg IVPUSH Q8H PRN PRN Reason: Nausea and Vomiting Oxycodone HCl (Oxycodone Hcl Immed Release 5 Mg Tablet) 5 mg PO Q6H PRN PRN Reason: Pain, Severe (Pain Scale 7-10) Pharmacy Consult (Consult Rx Etoh Phenob Im/Po) 1 each MISCELLANE ONCE PRN; Protocol PRN Reason: Consult order Pharmacy Consult (Consult Rx Vancomycin Dosing) 1 each MISCELLANE DAILY PRN PRN Reason: Consult order Phenobarbital (Phenobarbital 30 Mg Tablet) 60 mg PO BID [facility] Stop: 01/23/25 21:01 Last Admin: 01/23/25 08:15 Dose: 60 mg Documented By: CARLY Phenobarbital (Phenobarbital 30 Mg Tablet) 30 mg PO BID [facility] Stop: 01/25/25 21:01 Phenobarbital (Phenobarbital 30 Mg Tablet) 30 mg PO DAILY [facility] Stop: 01/27/25 09:01 Sodium Chloride (0.9 % Sodium Chloride Flush 3 Ml Syringe) 3 ml IVFLUSH QSHIFT [facility] Last Admin: 01/23/25 08:16 Dose: 3 ml Documented By: CARLY Thiamine HCl (Thiamine Hcl 100 Mg Tablet) 100 mg PO DAILY [facility] Stop: 01/25/25 08:59 Last Admin: 01/23/25 08:15 Dose: 100 mg Documented By: CARLY Labs 01/23/25 07:17 01/23/25 07:17 Labs: Laboratory Results - last 24 hr 01/23/25 01/23/25 06:47 07:17 MCV 96.5 MCH 34.4 H MCHC 35.6 RDW 12.1 Plt Count 237 MPV 8.9 L Immature Gran % (Auto) 0.5 H Neut % (Auto) 64.3 Lymph % (Auto) 17.0 L [place] % (Auto) 13.3 H Eos % (Auto) 4.1 H Baso % (Auto) 0.8 Lymph # (Auto) 1.2 [place] # (Auto) 1.0 Eos # (Auto) 0.3 Baso # (Auto) 0.1 Abs Immat Gran (auto) 0.04 H Absolute Neuts (auto) 4.7 Absolute Nucleated RBC 0.000 Nucleated RBC % (auto) 0.0 Anion Gap 15 Estim Creat Clear Calc 109.2 Estimated GFR > 60 Random Glucose 74 Calcium 9.0 Total Bilirubin 1.4 H Direct Bilirubin 0.6 H AST 54 H ALT 31 Alkaline Phosphatase 62 Total Protein 7.0 Albumin 4.0 Vancomycin Trough 12.7 Microbiology Microbiology Results: Microbiology 01/21/25 17:11 Blood Culture - Preliminary Blood - Venous No growth after 24 hours. 01/21/25 11:30 Blood Culture - Preliminary Blood - Venous No growth after 24 hours. Assessment and Plan (1) Alcohol abuse with withdrawal: Status: Acute Plan 65M PMH alcohol dependence presented with left gluteal cleft abscess and erythema Left gluteal abscess and cellulitis Continue vancomycin and Zosyn We will change to Augmentin and doxy tomorrow if continues to improve Follow up cultures Alcohol dependence with withdrawal Continue phenobarb Acute alcoholic hepatitis Mild, monitor LFTs, continue vitamins Acute hyponatremia Improving appropriately Acute hypomagnesemia Replace and monitor Hypertension Lisinopril DVT prophylaxis-Lovenox Do not intubate reason for continued hospitalization: Treating withdrawal Quality Stroke Does the patient have a stroke diagnosis?: No VTE Prior VTE?: No VTE Risk Level:: Medical - moderate - high VTE Device Contraindication: Treatment Not Indicated VTE Drug Contraindication: N/A - Med Ordered
[2025-01-23 11:41] VITALS: BP 126/78; PULSE 72; RESP 75; TEMP 36.1; O2SAT 98
[2025-01-23 16:00] VITALS: BP 139/87; PULSE 62; RESP 18; TEMP 36.1; O2SAT 97
[2025-01-23 19:28] VITALS: BP 153/82; PULSE 89; RESP 17; TEMP 37.3; O2SAT 97
[2025-01-23 23:45] VITALS: BP 135/85; PULSE 63; RESP 16; TEMP 36.8; O2SAT 96
[2025-01-24 03:22] VITALS: BP 136/85; PULSE 69; RESP 16; TEMP 36.3; O2SAT 95
[2025-01-24 06:03] LABS: MANUAL DIFF FLAG NO
[2025-01-24 06:06] LABS: Hematocrit 39.1 % (42.0-52.0); Hematocrit 39.8 % (42.0-52.0); Hemoglobin 14.2 g/dl (14.0-18.0); Imm Gran Abs Auto 0.14 X10*3/uL (0.00-0.03); Imm Gran Pct Auto 1.4 % (0.0-0.4); Lymphocytes Absolute Auto 0.9 X10*3/uL (1.2-4.9); Mean Corpuscular HGB Conc 35.7 g/dl (31.0-36.0); Mean Corpuscular HGB Conc 36.3 g/dl (31.0-36.0); Mean Corpuscular Hemoglobin 34.4 pg (27.0-33.0); Mean Corpuscular Hemoglobin 34.6 pg (27.0-33.0); Mean Corpuscular Volume 95.4 fL (80.0-98.0); Mean Corpuscular Volume 96.4 fL (80.0-98.0); NRBC Abs Auto 0.000 X10*3/uL (0.0-0.012); NRBC Pct Auto 0.0 /100WBC (0.0-0.2); Platelet Count 244 X10*3/uL (160-400); Platelet Count 252 X10*3/uL (160-400); Red Blood Count 4.10 X10*6/uL (4.60-5.80); Red Blood Count 4.13 X10*6/uL (4.60-5.80); White Blood Count 9.7 X10*3/uL (4.8-10.8); White Blood Count 9.9 X10*3/uL (4.8-10.8)
[2025-01-24 06:11] LABS: INTERNATIONAL NORM RATIO 1.0 (0.9-1.1); Prothrombin Time 11.5 SEC (10.9-12.4)
[2025-01-24 06:27] LABS: Alanine Aminotransferase 24 U/L (0-40); Albumin Level 3.6 g/dL (3.5-5.0); Alkaline Phosphatase 51 U/L (39-117); Anion Gap 16 (12-20); Aspartate Amino Transferase 46 U/L (5-37); Blood Urea Nitrogen 12 mg/dL (9-16); Calcium 8.7 mg/dL (8.4-10.2); Carbon Dioxide 23 mmol/L (22-29); Chloride 102 mmol/L (96-108); Creatinine Clr Calc Pharmacy 32.5; Estimated Glomerular Filt Rate 26; Magnesium 1.6 mg/dL (1.6-2.6); Potassium 3.9 mmol/L (3.3-5.1); Sodium 137 mmol/L (135-145); Total Protein 6.5 g/dL (6.5-8.0)
--- NOTE | 2025-01-24 06:36 | HE.PHANOTE ---
re: vanco Renal function declining and trough returned high at 26.5. Holding for 24 hours to ensure safety. Next trough 01/25 @0600.
[2025-01-24 07:59] VITALS: BP 144/97; PULSE 76; RESP 20; TEMP 36.1; O2SAT 100
[2025-01-24] MEDS: 0.9 % Sodium Chloride Flush 3 ML SYRINGE IVFLUSH ×2 (08:25→21:36)
[2025-01-24 09:02] LABS: Anion Gap 13 (12-20); Blood Urea Nitrogen 12 mg/dL (9-16); Calcium 8.7 mg/dL (8.4-10.2); Carbon Dioxide 25 mmol/L (22-29); Chloride 102 mmol/L (96-108); Creatinine Clr Calc Pharmacy 30.1; Estimated Glomerular Filt Rate 24; Potassium 4.0 mmol/L (3.3-5.1); Sodium 136 mmol/L (135-145)
[2025-01-24 11:31] VITALS: BP 165/83; PULSE 74; RESP 20; TEMP 36.4; O2SAT 99
--- NOTE | 2025-01-24 12:13 | MHC.CM.PN ---
EMR REVIEWED, PT W/CELLULITIS AND ABSCESS, ELECTROLYTE ABNORMALITIES AND ETOH, PT NOT YET MEDICALLY CLEARED AND WILL REMAIN INPT FOR CONT'D TX OF THIGH ABSCESS W/PURULENT DRAINAGE AND ELEVATED CREATININE, CM WILL CONT TO FOLLOW DC NEEDS.
[2025-01-24 12:45] LABS: Appearance Urine Clear; Glucose Urine UA Negative (Negative); PH 6.0 (5.0-9.0); Specific Gravity - Urine <= 1.005 (1.005-1.025); UMIC TRIGGER UA YES
[2025-01-24 13:37] LABS: Anion Gap 16 (12-20); Blood Urea Nitrogen 12 mg/dL (9-16); Calcium 8.8 mg/dL (8.4-10.2); Carbon Dioxide 23 mmol/L (22-29); Chloride 99 mmol/L (96-108); Creatinine Clr Calc Pharmacy 28.7; Estimated Glomerular Filt Rate 22; Potassium 4.1 mmol/L (3.3-5.1); Sodium 134 mmol/L (135-145)
[2025-01-24 15:31] VITALS: BP 157/95; PULSE 66; RESP 16; TEMP 36.6; O2SAT 99
--- NOTE | 2025-01-24 17:21 | P.PNIM_ITS ---
Subjective Subjective Date of Service: 01/24/25 Interval History: No new complaints today. The patient reports feeling overall better than he did yesterday. Eating drinking normally. Reports no change in urinary habits or patterns. Denies hematuria, oliguria, anuria. Review of Systems Review of Systems: Yes all other systems are reviewed and are negative Physical Exam 2 Exam: Exam: General: A&O x3, oriented to time place person and situation, comfortable, no pain Cardiac: S1, S2 auscultated with no S3/4, no MRG. Well perfused. Respiratory: Normal breath sounds auscultated throughout all lung zones, without wheezing, rales. Normal rate. GI/ : No abdominal pain on palpation, no masses or distentions. MSK: Normal ambulation without pain at bony prominences or musculature. Buttocks: Left medial gluteal cleft revealing granulation tissue 2 x 2 cm, tenderness to touch. Neurological: Normal neurological examination on overview, without obvious CN II-XII abnormalities. Vital Signs: Vital Signs: Last Vital Signs Temp 97.8 F 01/24/25 15:31 Pulse 66 01/24/25 15:31 Resp 16 01/24/25 15:31 BP 157/95 H 01/24/25 15:31 Pulse Ox 99 01/24/25 15:31 O2 Del Method Room Air 01/24/25 15:31 BMI result Body Mass Index 27.7 Objective Data Active Medications Acetaminophen (Acetaminophen 325 Mg Tablet) 650 mg PO Q6H PRN PRN Reason: Pain, Mild 1-3,fever,headache Calcium Carbonate (Calcium Carbonate 750 Mg Tab.Chew) 750 mg PO Q4H PRN PRN Reason: Heartburn Enoxaparin Sodium (Enoxaparin Sodium 40 Mg/0.4 Ml Syringe) 40 mg SUBCUT Q24H [facility] Last Admin: 01/23/25 20:51 Dose: 40 mg Documented By: JUNIOR Folic Acid (Folic Acid 1 Mg Tablet) 1 mg PO DAILY [facility] Stop: 01/25/25 08:59 Last Admin: 01/24/25 08:25 Dose: 1 mg Documented By: SHANON Piperacillin Sod/Tazobactam (Sod 3.375 gm/ Sodium Chloride) 50 mls @ 100 mls/hr IV Q6H [facility] Last Infusion: 01/24/25 13:16 Dose: Infused Documented By: SHANON Sodium Chloride (Ns) 500 mls @ 100 mls/hr IV .Q5H [facility] Stop: 01/24/25 18:14 Last Admin: 01/24/25 13:20 Dose: 100 mls/hr Documented By: SHANON Lisinopril (Lisinopril 20 Mg Tablet) 20 mg PO DAILY [facility]; Protocol Last Admin: 01/24/25 08:25 Dose: 20 mg Documented By: SHANON Magnesium Hydroxide (Milk Of Magnesia 30 Ml Oral.Susp) 30 ml PO DAILY PRN PRN Reason: Constipation Melatonin (Melatonin 3 Mg Tablet) 6 mg PO BEDTIME PRN PRN Reason: Insomnia Multivitamins/Vitamin C (Multivitamin Tablet) 1 tab PO DAILY [facility] Stop: 01/25/25 08:59 Last Admin: 01/24/25 08:25 Dose: 1 tab Documented By: SHANON Omeprazole (Omeprazole 20 Mg Capsule.Dr) 20 mg PO DAILY [facility] Last Admin: 01/24/25 08:25 Dose: 20 mg Documented By: SHANON Ondansetron HCl (Ondansetron Hcl 4 Mg/2 Ml Vial) 4 mg IVPUSH Q8H PRN PRN Reason: Nausea and Vomiting Oxycodone HCl (Oxycodone Hcl Immed Release 5 Mg Tablet) 5 mg PO Q6H PRN PRN Reason: Pain, Severe (Pain Scale 7-10) Pharmacy Consult (Consult Rx Etoh Phenob Im/Po) 1 each MISCELLANE ONCE PRN; Protocol PRN Reason: Consult order Pharmacy Consult (Consult Rx Vancomycin Dosing) 1 each MISCELLANE DAILY PRN PRN Reason: Consult order Phenobarbital (Phenobarbital 30 Mg Tablet) 30 mg PO BID [facility] Stop: 01/25/25 21:01 Last Admin: 01/24/25 08:25 Dose: 30 mg Documented By: SHANON Phenobarbital (Phenobarbital 30 Mg Tablet) 30 mg PO DAILY [facility] Stop: 01/27/25 09:01 Sodium Chloride (0.9 % Sodium Chloride Flush 3 Ml Syringe) 3 ml IVFLUSH QSHIFT [facility] Last Admin: 01/24/25 08:25 Dose: 3 ml Documented By: SHANON Thiamine HCl (Thiamine Hcl 100 Mg Tablet) 100 mg PO DAILY [facility] Stop: 01/25/25 08:59 Last Admin: 01/24/25 08:25 Dose: 100 mg Documented By: SHANON Labs 01/24/25 05:54 01/24/25 13:14 Labs: Laboratory Results - last 24 hr 01/24/25 01/24/25 01/24/25 05:54 05:54 05:54 MCV 96.4 95.4 MCH 34.4 H 34.6 H MCHC 35.7 RDW Plt Count MPV Immature Gran % (Auto) Neut % (Auto) Lymph % (Auto) [place] % (Auto) Eos % (Auto) Baso % (Auto) Lymph # (Auto) [place] # (Auto) Eos # (Auto) Baso # (Auto) Abs Immat Gran (auto) Absolute Neuts (auto) Absolute Nucleated RBC Nucleated RBC % (auto) Hold Purple Top PT INR Anion Gap Estim Creat Clear Calc Estimated GFR Random Glucose Calcium Magnesium Total Bilirubin Direct Bilirubin AST ALT Alkaline Phosphatase Total Protein Albumin Urine Color Urine Appearance Urine pH Ur Specific [place] Urine Protein Urine Glucose (UA) Urine Ketones Urine Blood Urine Nitrite Ur Leukocyte Esterase Urine RBC Urine WBC Ur Squamous Epith Cells Urine Bacteria Hyaline Casts Ur Random Sodium Urine Creatinine Random Vancomycin 01/24/25 01/24/25 01/24/25 05:54 05:54 05:54 MCV MCH MCHC 36.3 H RDW 12.4 12.5 Plt Count 244 252 MPV 8.9 L Immature Gran % (Auto) Neut % (Auto) Lymph % (Auto) [place] % (Auto) Eos % (Auto) Baso % (Auto) Lymph # (Auto) [place] # (Auto) Eos # (Auto) Baso # (Auto) Abs Immat Gran (auto) Absolute Neuts (auto) Absolute Nucleated RBC Nucleated RBC % (auto) Hold Purple Top PT INR Anion Gap Estim Creat Clear Calc Estimated GFR Random Glucose Calcium Magnesium Total Bilirubin Direct Bilirubin AST ALT Alkaline Phosphatase Total Protein Albumin Urine Color Urine Appearance Urine pH Ur Specific [place] Urine Protein Urine Glucose (UA) Urine Ketones Urine Blood Urine Nitrite Ur Leukocyte Esterase Urine RBC Urine WBC Ur Squamous Epith Cells Urine Bacteria Hyaline Casts Ur Random Sodium Urine Creatinine Random Vancomycin 01/24/25 01/24/25 01/24/25 05:54 05:54 05:54 MCV MCH MCHC RDW Plt Count MPV 8.9 L Immature Gran % (Auto) 1.4 H Neut % (Auto) 71.1 Lymph % (Auto) 9.4 L [place] % (Auto) 15.0 H Eos % (Auto) 2.5 Baso % (Auto) 0.6 Lymph # (Auto) 0.9 L [place] # (Auto) 1.5 H Eos # (Auto) 0.2 Baso # (Auto) 0.1 Abs Immat Gran (auto) 0.14 H Absolute Neuts (auto) 6.9 Absolute Nucleated RBC 0.000 0.000 Nucleated RBC % (auto) 0.0 0.0 Hold Purple Top PT 11.5 INR 1.0 Anion Gap 16 Estim Creat Clear Calc 32.5 Estimated GFR 26 Random Glucose 91 Calcium 8.7 Magnesium 1.6 Total Bilirubin 1.0 Direct Bilirubin 0.4 AST 46 H ALT 24 Alkaline Phosphatase 51 Total Protein 6.5 Albumin 3.6 Urine Color Urine Appearance Urine pH Ur Specific [place] Urine Protein Urine Glucose (UA) Urine Ketones Urine Blood Urine Nitrite Ur Leukocyte Esterase Urine RBC Urine WBC Ur Squamous Epith Cells Urine Bacteria Hyaline Casts Ur Random Sodium Urine Creatinine Random Vancomycin 26.5 H* 01/24/25 01/24/25 01/24/25 08:40 12:25 13:14 MCV MCH MCHC RDW Plt Count MPV Immature Gran % (Auto) Neut % (Auto) Lymph % (Auto) [place] % (Auto) Eos % (Auto) Baso % (Auto) Lymph # (Auto) [place] # (Auto) Eos # (Auto) Baso # (Auto) Abs Immat Gran (auto) Absolute Neuts (auto) Absolute Nucleated RBC Nucleated RBC % (auto) Hold Purple Top PT INR Anion Gap 13 16 Estim Creat Clear Calc 30.1 28.7 Estimated GFR 24 22 Random Glucose 91 82 Calcium 8.7 8.8 Magnesium Total Bilirubin Direct Bilirubin AST ALT Alkaline Phosphatase Total Protein Albumin Urine Color Yellow Urine Appearance Clear Urine pH 6.0 Ur Specific [place] <= 1.005 Urine Protein Trace Urine Glucose (UA) Negative Urine Ketones Negative Urine Blood Trace H Urine Nitrite Negative Ur Leukocyte Esterase Trace H Urine RBC 0-2 Urine WBC 0-5 Ur Squamous Epith Cells 0-2 Urine Bacteria None Seen Hyaline Casts 0-2 Ur Random Sodium < 20.0 Urine Creatinine 64.85 Random Vancomycin 01/24/25 13:18 MCV MCH MCHC RDW Plt Count MPV Immature Gran % (Auto) Neut % (Auto) Lymph % (Auto) [place] % (Auto) Eos % (Auto) Baso % (Auto) Lymph # (Auto) [place] # (Auto) Eos # (Auto) Baso # (Auto) Abs Immat Gran (auto) Absolute Neuts (auto) Absolute Nucleated RBC Nucleated RBC % (auto) Hold Purple Top SEE NOTE PT INR Anion Gap Estim Creat Clear Calc Estimated GFR Random Glucose Calcium Magnesium Total Bilirubin Direct Bilirubin AST ALT Alkaline Phosphatase Total Protein Albumin Urine Color Urine Appearance Urine pH Ur Specific [place] Urine Protein Urine Glucose (UA) Urine Ketones Urine Blood Urine Nitrite Ur Leukocyte Esterase Urine RBC Urine WBC Ur Squamous Epith Cells Urine Bacteria Hyaline Casts Ur Random Sodium Urine Creatinine Random Vancomycin Microbiology Microbiology Results: Microbiology 01/21/25 17:11 Blood Culture - Preliminary Blood - Venous No growth after 48 hours. 01/21/25 11:30 Blood Culture - Preliminary Blood - Venous No growth after 48 hours. Assessment and Plan (1) Alcohol abuse with withdrawal: Status: Acute (2) Acute hyponatremia: Status: Acute (3) Hypomagnesemia: Status: Acute (4) Abscess: Status: Acute (5) Cellulitis: Status: Acute Plan 65M PMH alcohol dependence presented with left gluteal cleft abscess and erythema Left gluteal abscess and cellulitis Continue vancomycin and Zosyn We will change to Augmentin and doxy tomorrow if continues to improve Follow up cultures Alcohol dependence with withdrawal Continue phenobarb Acute alcoholic hepatitis Mild, monitor LFTs, continue vitamins Acute hyponatremia Improving appropriately Acute hypomagnesemia Replace and monitor Hypertension Lisinopril QUALITY [employer] - VTE: Enoxaparin - CODE STATUS: DNI - DIET: Regular diet Quality Stroke Does the patient have a stroke diagnosis?: No VTE Prior VTE?: No VTE Risk Level:: Medical - moderate - high VTE Device Contraindication: Treatment Not Indicated VTE Drug Contraindication: N/A - Med Ordered
[2025-01-24 19:47] VITALS: BP 154/86; PULSE 68; RESP 18; TEMP 36.3; O2SAT 97
[2025-01-24 23:26] VITALS: BP 151/87; PULSE 61; RESP 16; TEMP 36.1; O2SAT 97
[2025-01-25 03:16] VITALS: BP 176/90; PULSE 66; RESP 16; TEMP 36.2; O2SAT 96
--- NOTE | 2025-01-25 05:42 | HO.SKINPHOTO ---
Location: Category: Stage: Length: Width: Depth: cm Location: Category: Stage: Length: Width: Depth: cm Location: Category: Stage: Length: Width: Depth: cm Location: Category: Stage: Length: Width: Depth: cm Location: Category: Stage: Length: Width: Depth: cm Location: Category: Stage: Length: Width: Depth: cm
[2025-01-25 07:26] LABS: Creatinine Clr Calc Pharmacy 23.4; Estimated Glomerular Filt Rate 18
[2025-01-25 07:44] VITALS: BP 154/96; PULSE 66; RESP 16; TEMP 36.5; O2SAT 97
--- NOTE | 2025-01-25 07:55 | HE.PHANOTE ---
Re: Vanco Level came back at 19.3 with poor renal function. Continue to hold dose to ensure safety. Next trough 01/26 @0600.
[2025-01-25 08:10] LABS: MANUAL DIFF FLAG NO
[2025-01-25] MEDS: 0.9 % Sodium Chloride Flush 3 ML SYRINGE IVFLUSH ×2 (08:14→17:22)
[2025-01-25 08:15] LABS: Hematocrit 39.3 % (42.0-52.0); Hemoglobin 13.5 g/dl (14.0-18.0); Imm Gran Abs Auto 0.10 X10*3/uL (0.00-0.03); Imm Gran Pct Auto 1.1 % (0.0-0.4); Lymphocytes Absolute Auto 1.0 X10*3/uL (1.2-4.9); Mean Corpuscular HGB Conc 34.4 g/dl (31.0-36.0); Mean Corpuscular Hemoglobin 33.9 pg (27.0-33.0); Mean Corpuscular Volume 98.7 fL (80.0-98.0); NRBC Abs Auto 0.000 X10*3/uL (0.0-0.012); NRBC Pct Auto 0.0 /100WBC (0.0-0.2); Platelet Count 255 X10*3/uL (160-400); Red Blood Count 3.98 X10*6/uL (4.60-5.80); White Blood Count 8.9 X10*3/uL (4.8-10.8)
[2025-01-25 08:31] LABS: Alanine Aminotransferase 21 U/L (0-40); Albumin Level 3.5 g/dL (3.5-5.0); Alkaline Phosphatase 42 U/L (39-117); Anion Gap 14 (12-20); Aspartate Amino Transferase 39 U/L (5-37); Blood Urea Nitrogen 15 mg/dL (9-16); Calcium 8.6 mg/dL (8.4-10.2); Carbon Dioxide 26 mmol/L (22-29); Chloride 103 mmol/L (96-108); Creatinine Clr Calc Pharmacy 21.7; Estimated Glomerular Filt Rate 16; Magnesium 1.7 mg/dL (1.6-2.6); Potassium 4.8 mmol/L (3.3-5.1); Sodium 138 mmol/L (135-145); Total Protein 6.4 g/dL (6.5-8.0)
[2025-01-25 08:46] LABS: Appearance Urine Clear; Glucose Urine UA Negative (Negative); PH 6.5 (5.0-9.0); Specific Gravity - Urine <= 1.005 (1.005-1.025)
[2025-01-25 08:48] LABS: Osmolality, Serum 286 mosm/kg (281-305)
[2025-01-25 10:45] VITALS: BP 152/94; PULSE 73; RESP 16; TEMP 36.1; O2SAT 97
--- NOTE | 2025-01-25 11:49 | P.CONNP_ITS ---
History of Present Illness Reason for Consult Consult date: 01/25/25 Chief Complaint Chief complaint: alcohol withdrawl History of Present Illness Narrative: 65 y/o male with hypertension and etoh abuse, reportedly 12 beers daily. Presented 01/21 with worsening left gluteal cleft abscess. Nephrology consulted for JOSEPH creatinine 0.62-0.75 01/21-01/23 creatinine 01/24 was 2.52, 01/25 is 3.5 vancomycin levels elevated at 26.5 on 01/24, levels 19.3 on 01/25 after dose adjustment patient received IV contrast on evening of 01/21 has been receiving lisinopril 20mg daily UA bland on 01/24 patient reports he is drinking lots of fluids and feeling ok today. Denies specific complaints/concerns. Minimal urine output recorded- bedside RN reports patient is independent and has been using the bathroom/flushing without measuring on his own. Review of Systems Constitutional: Reports no additional constitutional complaints Cardiovascular: Denies chest pain, Denies leg edema and Denies dyspnea Respiratory: Denies dyspnea Gastrointestinal: Denies abdominal pain, Denies diarrhea and Denies vomiting Genitourinary: Reports no additional male genitourinary complaints Skin/Breast: Denies rash PMFSH Past Medical History Medical History Alcohol use disorder HTN (hypertension) Social History Social History (Updated 01/21/25 @ 17:03 by Keturah Chauhan DO) Household Members: Children Housing: House Do you presently have visiting nurse or other home services: No Alcohol intake: current Alcohol intake frequency: 3 or more drinks per day Alcohol type: beer Comment: pt refused high fall alarms, steady gait, independent Patient Tobacco Use Status: Never used Tobacco service: No Meds Allergies Allergy/AdvReac Type Severity Reaction Status Date / Time No Known Allergies Allergy Verified 01/21/25 10:29 Active Medications: Current Medications Acetaminophen (Acetaminophen 325 Mg Tablet) 650 mg PO Q6H PRN PRN Reason: Pain, Mild 1-3,fever,headache Amlodipine Besylate (Amlodipine Besylate 10 Mg Tablet) 10 mg PO DAILY [facility]; Protocol Last Admin: 01/25/25 10:58 Dose: 10 mg Calcium Carbonate (Calcium Carbonate 750 Mg Tab.Chew) 750 mg PO Q4H PRN PRN Reason: Heartburn Famotidine (Famotidine 20 Mg Tablet) 10 mg PO Q48H [facility] Last Admin: 01/25/25 08:28 Dose: 10 mg Heparin Sodium (Porcine) (Heparin Sodium,Porcine 5,000 Unit/Ml Vial) 5,000 unit SUBCUT Q8H [facility] Last Admin: 01/25/25 08:13 Dose: 5,000 unit Piperacillin Sod/Tazobactam (Sod 2.25 gm/ Sodium Chloride) 50 mls @ 100 mls/hr IV Q6H [facility] Lisinopril (Lisinopril 20 Mg Tablet) 20 mg PO DAILY [facility]; Protocol On Hold: 01/25/25 07:46 Last Admin: 01/24/25 08:25 Dose: 20 mg Magnesium Hydroxide (Milk Of Magnesia 30 Ml Oral.Susp) 30 ml PO DAILY PRN PRN Reason: Constipation Melatonin (Melatonin 3 Mg Tablet) 6 mg PO BEDTIME PRN PRN Reason: Insomnia Ondansetron HCl (Ondansetron Hcl 4 Mg/2 Ml Vial) 4 mg IVPUSH Q8H PRN PRN Reason: Nausea and Vomiting Oxycodone HCl (Oxycodone Hcl Immed Release 5 Mg Tablet) 5 mg PO Q6H PRN PRN Reason: Pain, Severe (Pain Scale 7-10) Pharmacy Consult (Consult Rx Etoh Phenob Im/Po) 1 each MISCELLANE ONCE PRN; Protocol PRN Reason: Consult order Pharmacy Consult (Consult Rx Vancomycin Dosing) 1 each MISCELLANE DAILY PRN PRN Reason: Consult order Phenobarbital (Phenobarbital 30 Mg Tablet) 30 mg PO BID [facility] Stop: 01/25/25 21:01 Last Admin: 01/25/25 08:13 Dose: 30 mg Phenobarbital (Phenobarbital 30 Mg Tablet) 30 mg PO DAILY [facility] Stop: 01/27/25 09:01 Sodium Chloride (0.9 % Sodium Chloride Flush 3 Ml Syringe) 3 ml IVFLUSH QSHIFT [facility] Last Admin: 01/25/25 08:14 Dose: 3 ml Home Medications ?Medication ?Instructions ?Recorded ?Confirmed ?Last Taken ?Type amoxicillin 875 mg-potassium 1 tab PO BID 01/21/2501/21/25 History clavulanate 125 mg tablet lisinopril 20 mg tablet 20 mg PO DAILY 01/21/25 0810/3101/21/25 History omeprazole 20 mg tablet,delayed 20 mg PO DAILY 5 01/21/25 01/21/25 History release Physical Exam Vital Signs: Last Vital Signs Temp 97.0 F 01/25/25 10:45 Pulse 73 01/25/25 10:45 Resp 16 01/25/25 10:45 BP 152/94 H 01/25/25 10:45 Pulse Ox 97 01/25/25 10:45 O2 Del Method Room Air 01/25/25 10:45 BMI result Body Mass Index 27.7 Const General: no acute distress, alert and awake Resp Effort & Inspection: normal respiratory effort and able to speak in complete sentences Auscultation: clear to auscultation bilaterally Cardio Rate: regular rate Rhythm: regular rhythm Heart sounds: S1 normal heart sound present and S2 normal heart sound present GI Palpation (GI): Soft to palpation and nontender General: Yes no CVA tenderness Back/Spine/Pelvis Back: no CVA tenderness Skin Rashes: no rashes Extrem General: No edema Results Lab Results 01/25/25 07:45 01/25/25 07:45 Lab results: Chemistry 01/23/25 01/24/25 01/24/25 07:17 05:54 08:40 Sodium 135 137 136 Potassium 3.8 D 3.9 4.0 Carbon Dioxide 26 23 25 BUN 7 L 12 12 Creatinine 0.75 2.52 H 2.72 H Calcium 9.0 8.7 8.7 01/24/25 01/25/25 01/25/25 13:14 06:24 07:45 Sodium 134 L 138 Potassium 4.1 4.8 Carbon Dioxide 23 26 BUN 12 15 Creatinine 2.85 H 3.50 H 3.77 H Calcium 8.8 8.6 Hematology 01/23/25 01/24/25 01/24/25 07:17 05:54 05:54 WBC 7.3 9.7 9.9 Hgb 14.9 14.2 Plt Count 237 01/24/25 01/24/25 01/25/25 05:54 05:54 07:45 WBC 8.9 Hgb 14.2 13.5 L Plt Count 244 252 255 Urinalysis 01/24/25 01/25/25 12:25 08:22 Urine Color Yellow Yellow Urine Appearance Clear Clear Urine pH 6.0 6.5 Ur Specific [place] <= 1.005 <= 1.005 Urine Protein Trace Negative Urine Glucose (UA) Negative Negative Urine Ketones Negative Negative Urine Blood Trace H Negative Urine Nitrite Negative Negative Ur Leukocyte Esterase Trace H Negative Urine RBC 0-2 0-2 Urine WBC 0-5 0-5 Ur Squamous Epith Cells 0-2 0-2 Hyaline Casts 0-2 0-2 Urine Studies 01/24/25 01/25/25 12:25 08:22 Urine Osmolality 110 L Urine Creatinine 64.85 30.55 Assessment and Plan (1) JOSEPH (acute kidney injury): Status: Acute Plan JOSEPH likely ATN that is multifactorial- worsening ATN- vancomycin toxicity is likely greatest contributing factor- may have a continued rise in creatinine before plateauing and trending downward. urine sodium level <20 yesterday (though urine sodium increased and does not appear volume-depleted today), may have been dry while receiving lisinopril. Did have IV contrast for imaging on 01/21 evening, though less likely a significant contributor as creatinine did not bump until 18 a.m., though may have also been a factor. recommend holding lisinopril until JOSEPH resolves. recommend continuing to monitor vancomycin levels closely and making appropriate dose adjustments as necessary recommend daily electrolyte and renal function studies recommend monitoring I&Os more closely to ensure adequate urine output recommend avoiding nephrotoxic agents whenever clinically feasible Discussed with Dr Bro. Procedures Date of Service Date of Service: 01/25/25
[2025-01-25 12:17] LABS: B Type Natriuretic Peptide 187 pg/mL (<100)
--- NOTE | 2025-01-25 13:00 | P.PNIM_ITS ---
Subjective Subjective Date of Service: 01/25/25 Interval History: Patient feels well today and restless. He is eager to be discharged home. Discussed further increase in his creatinine from 2.6-3.5. Discussed clinical plan including urinary workup as well as ultrasonography and nephrology consultation. The patient expresses understanding. Of note, the patient is urinating well, no hematuria, clear yellow urine without sediment. No flank pain or tenesmus or incomplete bowel bladder emptying No fevers chills or rigors Review of Systems Review of Systems: Yes all other systems are reviewed and are negative Physical Exam 2 Exam: Exam: General: A&O x3, oriented to time place person and situation, comfortable, no pain Cardiac: S1, S2 auscultated with no S3/4, no MRG. Well perfused. Respiratory: Normal breath sounds auscultated throughout all lung zones, without wheezing, rales. Normal rate. GI/ : No abdominal pain on palpation, no masses or distentions. MSK: Normal ambulation without pain at bony prominences or musculature Neurological: Normal neurological examination on overview, without obvious CN II-XII abnormalities. Vital Signs: Vital Signs: Last Vital Signs Temp 97.0 F 01/25/25 10:45 Pulse 73 01/25/25 10:45 Resp 16 01/25/25 10:45 BP 152/94 H 01/25/25 10:45 Pulse Ox 97 01/25/25 10:45 O2 Del Method Room Air 01/25/25 10:45 BMI result Body Mass Index 27.7 Objective Data Active Medications Acetaminophen (Acetaminophen 325 Mg Tablet) 650 mg PO Q6H PRN PRN Reason: Pain, Mild 1-3,fever,headache Amlodipine Besylate (Amlodipine Besylate 10 Mg Tablet) 10 mg PO DAILY [facility]; Protocol Last Admin: 01/25/25 10:58 Dose: 10 mg Documented By: SHANON Calcium Carbonate (Calcium Carbonate 750 Mg Tab.Chew) 750 mg PO Q4H PRN PRN Reason: Heartburn Famotidine (Famotidine 20 Mg Tablet) 10 mg PO Q48H [facility] Last Admin: 01/25/25 08:28 Dose: 10 mg Documented By: SHANON Heparin Sodium (Porcine) (Heparin Sodium,Porcine 5,000 Unit/Ml Vial) 5,000 unit SUBCUT Q8H [facility] Last Admin: 01/25/25 08:13 Dose: 5,000 unit Documented By: SHANON Piperacillin Sod/Tazobactam (Sod 2.25 gm/ Sodium Chloride) 50 mls @ 100 mls/hr IV Q6H [facility] Last Admin: 01/25/25 11:59 Dose: 100 mls/hr Documented By: SHANON Lisinopril (Lisinopril 20 Mg Tablet) 20 mg PO DAILY [facility]; Protocol On Hold: 01/25/25 07:46 Last Admin: 01/24/25 08:25 Dose: 20 mg Documented By: SHANON Magnesium Hydroxide (Milk Of Magnesia 30 Ml Oral.Susp) 30 ml PO DAILY PRN PRN Reason: Constipation Melatonin (Melatonin 3 Mg Tablet) 6 mg PO BEDTIME PRN PRN Reason: Insomnia Ondansetron HCl (Ondansetron Hcl 4 Mg/2 Ml Vial) 4 mg IVPUSH Q8H PRN PRN Reason: Nausea and Vomiting Oxycodone HCl (Oxycodone Hcl Immed Release 5 Mg Tablet) 5 mg PO Q6H PRN PRN Reason: Pain, Severe (Pain Scale 7-10) Pharmacy Consult (Consult Rx Etoh Phenob Im/Po) 1 each MISCELLANE ONCE PRN; Protocol PRN Reason: Consult order Pharmacy Consult (Consult Rx Vancomycin Dosing) 1 each MISCELLANE DAILY PRN PRN Reason: Consult order Phenobarbital (Phenobarbital 30 Mg Tablet) 30 mg PO BID [facility] Stop: 01/25/25 21:01 Last Admin: 01/25/25 08:13 Dose: 30 mg Documented By: SHANON Phenobarbital (Phenobarbital 30 Mg Tablet) 30 mg PO DAILY [facility] Stop: 01/27/25 09:01 Sodium Chloride (0.9 % Sodium Chloride Flush 3 Ml Syringe) 3 ml IVFLUSH QSHIFT [facility] Last Admin: 01/25/25 08:14 Dose: 3 ml Documented By: SHANON Labs 01/25/25 07:45 01/25/25 07:45 Labs: Laboratory Results - last 24 hr 01/24/25 01/24/25 01/25/25 13:14 13:18 06:24 MCV MCH MCHC RDW Plt Count MPV Immature Gran % (Auto) Neut % (Auto) Lymph % (Auto) [place]offey % (Auto) Eos % (Auto) Baso % (Auto) Lymph # (Auto) [place]offey # (Auto) Eos # (Auto) Baso # (Auto) Abs Immat Gran (auto) Absolute Neuts (auto) Absolute Nucleated RBC Nucleated RBC % (auto) Hold Purple Top SEE NOTE Anion Gap 16 Estim Creat Clear Calc 28.7 23.4 Estimated GFR 22 18 Random Glucose 82 Osmolality Calcium 8.8 Magnesium Total Bilirubin AST ALT Alkaline Phosphatase C-Reactive Protein B-Natriuretic Peptide Total Protein Albumin Urine Color Urine Appearance Urine pH Ur Specific [place] Urine Protein Urine Glucose (UA) Urine Ketones Urine Blood Urine Nitrite Ur Leukocyte Esterase Urine RBC Urine WBC Ur Squamous Epith Cells Urine Bacteria Hyaline Casts Urine Osmolality Ur Random Sodium Urine Creatinine Random Vancomycin 19.3 01/25/25 01/25/25 07:45 08:22 MCV 98.7 H MCH 33.9 H MCHC 34.4 RDW 12.7 Plt Count 255 MPV 8.9 L Immature Gran % (Auto) 1.1 H Neut % (Auto) 69.9 Lymph % (Auto) 10.7 L Coffey % (Auto) 13.8 H Eos % (Auto) 3.6 Baso % (Auto) 0.9 Lymph # (Auto) 1.0 L [place]y # (Auto) 1.2 Eos # (Auto) 0.3 Baso # (Auto) 0.1 Abs Immat Gran (auto) 0.10 H Absolute Neuts (auto) 6.2 Absolute Nucleated RBC 0.000 Nucleated RBC % (auto) 0.0 Hold Purple Top Anion Gap 14 Estim Creat Clear Calc 21.7 Estimated GFR 16 Random Glucose 105 Osmolality 286 Calcium 8.6 Magnesium 1.7 Total Bilirubin 0.7 AST 39 H ALT 21 Alkaline Phosphatase 42 C-Reactive Protein 3.49 H B-Natriuretic Peptide 187 H Total Protein 6.4 L Albumin 3.5 Urine Color Yellow Urine Appearance Clear Urine pH 6.5 Ur Specific [place] <= 1.005 Urine Protein Negative Urine Glucose (UA) Negative Urine Ketones Negative Urine Blood Negative Urine Nitrite Negative Ur Leukocyte Esterase Negative Urine RBC 0-2 Urine WBC 0-5 Ur Squamous Epith Cells 0-2 Urine Bacteria None Seen Hyaline Casts 0-2 Urine Osmolality 110 L Ur Random Sodium 31.0 Urine Creatinine 30.55 Random Vancomycin Assessment and Plan (1) Cellulitis: Status: Acute (2) Abscess: Status: Acute (3) Hypomagnesemia: Status: Acute (4) Alcohol abuse with withdrawal: Status: Acute (5) JOSEPH (acute kidney injury): Status: Acute Plan 65M PMH alcohol dependence presented with left gluteal cleft abscess and erythema Left gluteal abscess and cellulitis Continue vancomycin and Zosyn We will change to Augmentin and doxy tomorrow if continues to improve Follow up cultures Acute kidney injury Patient's creatinine has increased from baseline 0.7 to 3.5 currently. UA relatively unremarkable FENA 0.6% consistent with prerenal JOSEPH Was given a 500 cc NaCl 0.9%. Nephrology was consulted today for further recommendations. Likely multifactorial; vancomycin induced. Expected increase in creatinine - with expected plateau and decreased given bland UA. Continuing to monitor closely Lisinopril held Amlodipine 10 mg ODT p.o. started for hypertension Alcohol dependence with withdrawal Continue phenobarb Acute alcoholic hepatitis Mild, monitor LFTs, continue vitamins Acute hyponatremia Improving appropriately Acute hypomagnesemia Replace and monitor Hypertension Lisinopril held given JOSEPH Started on amlodipine 10 mg OD p.o. QUALITY METRICS - VTE: Enoxaparin discontinued - started on heparin t.i.d. due to JOSEPH - CODE STATUS: DNI - DIET: Regular diet Quality Stroke Does the patient have a stroke diagnosis?: No VTE Prior VTE?: No VTE Risk Level:: Medical - moderate - high VTE Device Contraindication: Treatment Not Indicated VTE Drug Contraindication: N/A - Med Ordered
[2025-01-25 14:59] VITALS: BP 155/88; PULSE 78; RESP 20; TEMP 36.4; O2SAT 98
[2025-01-25 19:38] VITALS: BP 152/90; PULSE 74; RESP 18; TEMP 36.7; O2SAT 98
[2025-01-26] VITALS (7 sets, daily range): BP systolic 137–180; BP diastolic 80–99; PULSE 61–83; RESP 16–20; TEMP 36.2–37.2; O2SAT 95–99
[2025-01-26] MEDS: 0.9 % Sodium Chloride Flush 3 ML SYRINGE IVFLUSH ×3 (01:33→16:29)
[2025-01-26 07:23] LABS: Anion Gap 13 (12-20); Blood Urea Nitrogen 18 mg/dL (9-16); Calcium 8.9 mg/dL (8.4-10.2); Carbon Dioxide 24 mmol/L (22-29); Chloride 106 mmol/L (96-108); Creatinine Clr Calc Pharmacy 18.2; Estimated Glomerular Filt Rate 13; Potassium 5.3 mmol/L (3.3-5.1); Sodium 138 mmol/L (135-145)
--- NOTE | 2025-01-26 10:10 | P.PNNP_ITS ---
Subjective Subjective Date of Service: 01/26/25 Interval history: Here with left gluteal cleft abscess. Following for JOSEPH. creatinine 4.48 today, up from 3.77. Urine remains bland. patient reports he is doing fine today. is restless but otherwise no new symptoms/complaints. States he continues to void urine regularly. Physical Exam 2 Vital Signs: Vital Signs: Last Vital Signs Temp 97.1 F 01/26/25 12:00 Pulse 73 01/26/25 12:00 Resp 20 01/26/25 12:00 BP 137/87 01/26/25 12:00 Pulse Ox 97 01/26/25 12:00 O2 Del Method Room Air 01/26/25 12:00 BMI result Body Mass Index 27.7 Const: General: no acute distress, alert and awake Resp: Effort & Inspection: normal respiratory effort and able to speak in complete sentences Auscultation: clear to auscultation bilaterally Cardio: Rate: regular rate Rhythm: regular rhythm Heart sounds: S1 normal heart sound present and S2 normal heart sound present GI: Palpation (GI): Soft to palpation and nontender : General: Yes no CVA tenderness Back/Spine/Pelvis: Back: no CVA tenderness Skin: Rashes: no rashes Extrem: General: No edema Objective Data Labs 01/25/25 07:45 01/26/25 06:14 Labs: Laboratory Results - last 24 hr 01/26/25 06:14 Sodium 138 Potassium 5.3 H Chloride 106 Carbon Dioxide 24 Anion Gap 13 BUN 18 H Creatinine 4.48 H* Estim Creat Clear Calc 18.2 Estimated GFR 13 Random Glucose 79 Calcium 8.9 Random Vancomycin 15.6 Microbiology Microbiology Results: Microbiology 01/21/25 17:11 Blood - Venous Blood Culture - Preliminary No growth after 48 hours. 01/21/25 11:30 Blood - Venous Blood Culture - Preliminary No growth after 48 hours. Procedures Date of Service Date of Service: 01/26/25 Assessment & Plan Assessment and plan (1) JOSEPH (acute kidney injury): Status: Acute Plan JOSEPH likely ATN that is multifactorial- worsening ATN- vancomycin toxicity is likely greatest contributing factor- anticipate continued rise in creatinine before plateauing and trending downward. Initially may have been dry while receiving lisinopril though appears euvolemic now. Did have IV contrast for imaging on 01/21 evening, though less likely a significant contributor as creatinine did not bump until 01/24 a.m., though may have also been a factor. recommend holding lisinopril until JOSEPH resolves. recommend continuing to monitor vancomycin levels closely and making appropriate dose adjustments as necessary recommend daily electrolyte and renal function studies recommend monitoring I&Os more closely to ensure adequate urine output recommend avoiding nephrotoxic agents whenever clinically feasible advised patient to keep well hydrated Discussed with Dr Bro. Time Spent With Patient Time: Total time managing care of this patient today ____ minutes. Progress Note: Quality Stroke Does the patient have a stroke diagnosis?: No
--- NOTE | 2025-01-26 12:54 | HO.PM.IMPN ---
Subjective Subjective Date of Service: 01/26/25 Interval History: Creatinine continues to increase. The patient denies oliguria. Continues to urinate , clear yellow. Denies flank pain, hematuria, discolored urine, pyuria, tenesmus/retention. Review of Systems Constitutional : No Fever, No Chills ENT/Mouth : No sore throat, No Rhinorrhea Eyes: No Eye Pain, No Swelling, No Redness Cardiovascular : No Chest Pain, No SOB Respiratory : No Cough, No Sputum Gastrointestinal : No Nausea, No Vomiting, No Diarrhea, No abdominal Pain Genitourinary : No Dysuria, No Hematuria Musculoskeletal : No joint pain, No Myalgias, No Joint Swelling Skin : No Skin Lesions, positive skin rash Neuro : No Weakness, No Numbness, No Headache Psych : No Anxiety, No Depression Heme/Lymph: No Bruising, No Bleeding,No Lymphadenopathy Endocrine : No Polyuria, No Polydipsia All other systems reviewed and are negative Review of Systems: Yes all other systems are reviewed and are negative Physical Exam Exam: Exam: General: A&O x3, oriented to time place person and situation, comfortable, no pain Cardiac: S1, S2 auscultated with no S3/4, no MRG. Well perfused. Respiratory: Normal breath sounds auscultated throughout all lung zones, without wheezing, rales. Normal rate. GI/ : No abdominal pain on palpation, no masses or distentions. MSK: Normal ambulation without pain at bony prominences or musculature Buttocks: Left medial gluteal cleft revealing granulation tissue 2 x 2 cm, tenderness to touch. Neurological: Normal neurological examination on overview, without obvious CN II-XII abnormalities. Vital Signs: Vital Signs: Last Vital Signs Temp 97.1 F 01/26/25 12:00 Pulse 73 01/26/25 12:00 Resp 20 01/26/25 12:00 BP 137/87 01/26/25 12:00 Pulse Ox 97 01/26/25 12:00 O2 Del Method Room Air 01/26/25 12:00 BMI result Body Mass Index 27.7 Objective Data Active Medications Acetaminophen (Acetaminophen 325 Mg Tablet) 650 mg PO Q6H PRN PRN Reason: Pain, Mild 1-3,fever,headache Amlodipine Besylate (Amlodipine Besylate 10 Mg Tablet) 10 mg PO DAILY [facility]; Protocol Last Admin: 01/26/25 08:09 Dose: 10 mg Documented By: SHANON Amoxicillin/Clavulanate Potassium (Amoxicillin/Potassium Clav 500 Mg Tablet) 500 mg PO Q12H [facility] Last Admin: 01/26/25 08:09 Dose: 500 mg Documented By: SHANON Calcium Carbonate (Calcium Carbonate 750 Mg Tab.Chew) 750 mg PO Q4H PRN PRN Reason: Heartburn Doxycycline Monohydrate (Doxycycline Monohydrate 100 Mg Capsule) 100 mg PO Q12H [facility] Last Admin: 01/26/25 08:09 Dose: 100 mg Documented By: SHANON Famotidine (Famotidine 20 Mg Tablet) 10 mg PO Q48H [facility] Last Admin: 01/25/25 08:28 Dose: 10 mg Documented By: SHANON Heparin Sodium (Porcine) (Heparin Sodium,Porcine 5,000 Unit/Ml Vial) 5,000 unit SUBCUT Q8H [facility] Last Admin: 01/26/25 08:08 Dose: 5,000 unit Documented By: SHANON Lisinopril (Lisinopril 20 Mg Tablet) 20 mg PO DAILY [facility]; Protocol On Hold: 01/25/25 07:46 Last Admin: 01/24/25 08:25 Dose: 20 mg Documented By: SHANON Magnesium Hydroxide (Milk Of Magnesia 30 Ml Oral.Susp) 30 ml PO DAILY PRN PRN Reason: Constipation Melatonin (Melatonin 3 Mg Tablet) 6 mg PO BEDTIME PRN PRN Reason: Insomnia Ondansetron HCl (Ondansetron Hcl 4 Mg/2 Ml Vial) 4 mg IVPUSH Q8H PRN PRN Reason: Nausea and Vomiting Oxycodone HCl (Oxycodone Hcl Immed Release 5 Mg Tablet) 5 mg PO Q6H PRN PRN Reason: Pain, Severe (Pain Scale 7-10) Pharmacy Consult (Consult Rx Etoh Phenob Im/Po) 1 each MISCELLANE ONCE PRN; Protocol PRN Reason: Consult order Phenobarbital (Phenobarbital 30 Mg Tablet) 30 mg PO DAILY [facility] Stop: 01/27/25 09:01 Last Admin: 01/26/25 08:09 Dose: 30 mg Documented By: SHANON Sodium Chloride (0.9 % Sodium Chloride Flush 3 Ml Syringe) 3 ml IVFLUSH QSHIFT [facility] Last Admin: 01/26/25 08:10 Dose: 3 ml Documented By: SHANON Labs 01/25/25 07:45 01/26/25 06:14 Labs: Laboratory Results - last 24 hr 01/26/25 06:14 Anion Gap 13 Estim Creat Clear Calc 18.2 Estimated GFR 13 Random Glucose 79 Calcium 8.9 Random Vancomycin 15.6 Assessment and Plan (1) Alcohol abuse with withdrawal: Status: Acute (2) JOSEPH (acute kidney injury): Status: Acute (3) Abscess: Status: Acute (4) Cellulitis: Status: Acute Plan 65M PMH alcohol dependence presented with left gluteal cleft abscess and erythema Left gluteal abscess and cellulitis Continue vancomycin and Zosyn We will change to Augmentin and doxy tomorrow if continues to improve Follow up cultures Acute kidney injury Patient's creatinine has increased from baseline 0.7 to 4.2 currently. UA relatively unremarkable FENA 0.6% consistent with prerenal JOSEPH Was given a 500 cc NaCl 0.9%. Nephrology was consulted today for further recommendations. Likely multifactorial; vancomycin induced. Expected increase in creatinine - with expected plateau and decreased given bland UA. Continuing to monitor closely Lisinopril held Amlodipine 10 mg ODT p.o. started for hypertension Alcohol dependence with withdrawal Continue phenobarb Acute alcoholic hepatitis Mild, monitor LFTs, continue vitamins Acute hyponatremia Improving appropriately Acute hypomagnesemia Replace and monitor Hypertension Lisinopril held given JOSEPH Started on amlodipine 10 mg OD p.o. QUALITY [employer] - VTE: Enoxaparin discontinued - started on heparin t.i.d. due to JOSEPH - CODE STATUS: DNI - DIET: Regular diet Total time managing care of this patient today: 35 minutes. Quality Stroke Does the patient have a stroke diagnosis?: No VTE Prior VTE?: No VTE Risk Level:: Medical - moderate - high VTE Device Contraindication: Treatment Not Indicated VTE Drug Contraindication: N/A - Med Ordered
[2025-01-26 13:26] LABS: EOS Counted 0 CELLS; EOS QC POS YES; EOS Stain Quality OK YES; WBC, Counted 10 CELLS
--- NOTE | 2025-01-26 14:08 | MHC.CM.PN ---
EMR REVIEWED, PT W/CELLULITIS AND ABSCESS, ELECTROLYTE ABNORMALITIES AND ETOH, PT REMAINS ON PHENOBARB PROTOCOL, CREATINE TRENDING UP, PER HOSPITALIST ANTIIC PT WILLL REMAIN INPT APPROX 2 MORE DAYS, CM WILL CONT TO FOLLOW DC NEEDS.
[2025-01-27 03:16] VITALS: BP 170/90; PULSE 75; RESP 18; TEMP 36; O2SAT 96
[2025-01-27 07:23] LABS: Anion Gap 15 (12-20); Blood Urea Nitrogen 24 mg/dL (9-16); Calcium 9.4 mg/dL (8.4-10.2); Carbon Dioxide 23 mmol/L (22-29); Chloride 105 mmol/L (96-108); Creatinine Clr Calc Pharmacy 19.9; Estimated Glomerular Filt Rate 15; Potassium 5.3 mmol/L (3.3-5.1); Sodium 138 mmol/L (135-145)
[2025-01-27 07:47] VITALS: BP 158/82; PULSE 74; RESP 20; TEMP 36.4; O2SAT 97
[2025-01-27] MEDS: 0.9 % Sodium Chloride Flush 3 ML SYRINGE IVFLUSH (08:02)
[2025-01-27 10:38] VITALS: PULSE 99
--- NOTE | 2025-01-27 11:00 | PM.PNNEP ---
Subjective Subjective Date of Service: 01/27/25 Interval history: Here with left gluteal cleft abscess. Following for JOSEPH. creatinine trending down this a.m., 4.11 from 4.48 yesterday. patient reports he is doing fine today. is restless but otherwise no new symptoms/complaints. States he continues to void urine regularly. States he is hoping to go home. Physical Exam Vital Signs: Vital Signs: Last Vital Signs Temp 97.1 F 01/27/25 11:14 Pulse 99 01/27/25 10:38 Resp 16 01/27/25 11:14 BP 160/86 H 01/27/25 11:14 Pulse Ox 98 01/27/25 11:14 O2 Del Method Room Air 01/27/25 11:14 BMI result Body Mass Index 27.7 Const: General: no acute distress, alert and awake Resp: Effort & Inspection: normal respiratory effort and able to speak in complete sentences Auscultation: clear to auscultation bilaterally Cardio: Rate: regular rate Rhythm: regular rhythm Heart sounds: S1 normal heart sound present and S2 normal heart sound present GI: Palpation (GI): Soft to palpation and nontender : General: Yes no CVA tenderness Back/Spine/Pelvis: Back: no CVA tenderness Skin: Rashes: no rashes Extrem: General: No edema Objective Data Labs 01/25/25 07:45 01/27/25 12:28 Labs: Laboratory Results - last 24 hr 01/27/25 01/27/25 06:45 12:28 Hold Purple Top SEE NOTE Sodium 138 137 Potassium 5.3 H 4.8 Chloride 105 104 Carbon Dioxide 23 26 Anion Gap 15 12 BUN 24 H 25 H Creatinine 4.11 H* 4.06 H* Estim Creat Clear Calc 19.9 20.1 Estimated GFR 15 15 Random Glucose 81 106 Calcium 9.4 9.1 Microbiology Microbiology Results: Microbiology 01/21/25 17:11 Blood - Venous Blood Culture - Final No growth after 5 days. 01/21/25 11:30 Blood - Venous Blood Culture - Final No growth after 5 days. Procedures Date of Service Date of Service: 01/27/25 Assessment & Plan Assessment and plan (1) JOSEPH (acute kidney injury): Status: Acute Plan JOSEPH likely ATN that is multifactorial- improving. Likely vancomycin-toxicity is most significant cause of JOSEPH, though may have also been dry while receiving lisinopril, did also have IV contrast though timing makes this less likely. 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 Recommend re-checking BMP at noon today, if creatinine continues to improve or stays relatively the same, can d/c home with close follow up with Dr Bro as outpatinet. advised patient to keep well hydrated, avoid nephrotoxins. Discussed with Dr Bro. Time Spent With Patient Time: Total time managing care of this patient today ____ minutes. Progress Note: Quality Stroke Does the patient have a stroke diagnosis?: No
[2025-01-27 11:14] VITALS: BP 160/86; RESP 16; TEMP 36.2; O2SAT 98
--- NOTE | 2025-01-27 11:21 | MHC.CM.PN ---
ANTIC PT WILL BE MEDICALLY CLEARED FOR DC HOME SELF CARE PENDING 12PM LABS, PT WILL ARRANGE A RIDE HOME.
[2025-01-27 13:12] LABS: Anion Gap 12 (12-20); Blood Urea Nitrogen 25 mg/dL (9-16); Calcium 9.1 mg/dL (8.4-10.2); Carbon Dioxide 26 mmol/L (22-29); Chloride 104 mmol/L (96-108); Creatinine Clr Calc Pharmacy 20.1; Estimated Glomerular Filt Rate 15; Potassium 4.8 mmol/L (3.3-5.1); Sodium 137 mmol/L (135-145)
--- NOTE | 2025-01-27 13:55 | PM.DS ---
DS: Providers Provider Date of Service: 01/21/25 Date of admission: 01/21/25 19:24 Date of discharge: 01/27/25 Primary care physician: Travis Jaffe MD Consults: 01/21/25 21:47 Consult to Wound Care Routine Reason for consultation: recent I+D L gluteal cleft, packing changed 01/2101/21/25 21:50 Addiction Medicine Provider Routine Consulting Provider: Addiction Covering Reason for consultation: etoh withdrawal Has provider been notified: No 01/25/25 07:33 Consult to Nephrology Routine Consulting Provider: [facility] Reason for consultation: worsening JOSEPH (baseline 0.7); currently 3.5(2.8(2.5) Has provider been notified: No Attending physician on discharge: Alexi Randle DS: Diagnosis Discharge Diagnosis (1) Alcohol abuse with withdrawal: Status: Acute (2) JOSEPH (acute kidney injury): Status: Acute (3) Abscess: Status: Acute (4) Cellulitis: Status: Acute DS: Summary Hospital Course Hospital Course: Patient is a 65-year-old male with a past medical history significant for hypertension and alcohol abuse, who presented to the ED due to a worsening abscess in the left gluteal cleft that was drained 01/20 at urgent care after having it for 5 days. The patient followed up for wound packing change and recheck and he was told that surrounding redness has increased and they recommended he report to the emergency department. He was taking augmentin and has taken 3 doses. He denies any increased pain, fever, chills, nausea or vomiting. He drinks about 12 beers a day, last consumed a few this morning. no hx of etoh withdrawal or seizures. reports that he was hospitalized for 2 knee surgeries and has not had withdrawal during either stay. Patient was placed on IV antibiotics with vancomycin and piperacillin tazobactam on admission. During his stay, the patient developed an acute kidney injury, deemed to be secondary to vancomycin. Transitioned to Augmentin and doxycyc. Creatinine eventually plateaued, and began normalizing. Deemed safe for discharge by Nephrology after consultation and discussion with the patient as well. Nephrology Service has outpatient appointment scheduled for the patient - with repeat blood work. Status at Discharge Functional status at discharge: independent ambulation Overall status at discharge: patient is back to baseline Time Attestation Total time managing care of this patient today: 35 mintues. Discharge Coordination Time (in mins): 15 Quality: Safe Use of Opioids Does Pt have an Active Cancer Diagnosis on the Problem List?: No Quality: Stroke Does the patient have a stroke diagnosis?: No Physical Exam Exam: Exam: General: A&O x3, oriented to time place person and situation, comfortable, no pain Cardiac: S1, S2 auscultated with no S3/4, no MRG. Well perfused. Respiratory: Normal breath sounds auscultated throughout all lung zones, without wheezing, rales. Normal rate. GI/ : No abdominal pain on palpation, no masses or distentions. MSK: Normal ambulation without pain at bony prominences or musculature Buttocks: Left medial gluteal cleft revealing granulation tissue 2 x 2 cm, tenderness to touch. Neurological: Normal neurological examination on overview, without obvious CN II-XII abnormalities. Vital Signs: Vital Signs: Last Vital Signs Temp 97.1 F 01/27/25 11:14 Pulse 99 01/27/25 10:38 Resp 16 01/27/25 11:14 BP 160/86 H 01/27/25 11:14 Pulse Ox 98 01/27/25 11:14 O2 Del Method Room Air 01/27/25 11:14 BMI result Body Mass Index 27.7 DS: Data Data Completed and Pending Labs on day of discharge: Laboratory Results - last 24 hr 01/27/25 01/27/25 06:45 12:28 Hold Purple Top SEE NOTE Sodium 138 137 Potassium 5.3 H 4.8 Chloride 105 104 Carbon Dioxide 23 26 Anion Gap 15 12 BUN 24 H 25 H Creatinine 4.11 H* 4.06 H* Estim Creat Clear Calc 19.9 20.1 Estimated GFR 15 15 Random Glucose 81 106 Calcium 9.4 9.1 Discharge Plan Discharge Anticipated Discharge Date/Time: 01/27/25 14:01 Patient Disposition: Home, Self-Care Discharge Diagnosis: Abscess gluteal cleft and cellulitis status post I and D, acute kidney injury gradually resolving Referrals: Travis Jaffe MD [Primary Care Provider, Internal Medicine] - 1 Week Discharge Medications: New carvedilol 6.25 mg Tablet 6.25 mg PO BID 30 Days Qty: 60 0RF Protocol: Hold for SBP/HR < HOLD for SBP < : 90 HOLD for HR < : 60 famotidine 20 mg Tablet 10 mg PO Q48H 30 Days Qty: 8 0RF amlodipine 10 mg Tablet 10 mg PO DAILY 30 Days Qty: 30 0RF Protocol: Hold for SBP< HOLD for SBP < : 90 doxycycline monohydrate 100 mg Capsule 100 mg PO Q12H 9 Days Qty: 18 0RF amoxicillin-pot clavulanate 500-125 mg Tablet 1 tab PO Q12H 9 Days Qty: 18 0RF Discontinued lisinopril 20 mg tablet 20 mg PO DAILY amoxicillin-pot clavulanate 875-125 mg tablet 1 tab PO BID Rx Instructions: 7 DAY TREATMENT STARTED 01/21/25 @0900 omeprazole 20 mg Tablet,Delayed Release (Dr/Ec) 20 mg PO DAILY Discharge Orders: Discharge Order (Routine); Ordered 01/27/25 Ordered By: Alexi Randle Diet: Advance to usual diet Activity on Discharge: As tolerated Stand Alone Forms: Patient Portal Discharge page Print Language: Frisian Care Plan Goals: Follow with Nephrology outpatient setting Follow up Infectious diseases outpatient setting Follow-up Wound Care Clinic outpatient setting Follow-up PCP within 1 week of discharge Health Concerns: As above Plan of Treatment: Continue antibiotics until complete. Do not take lisinopril at home. These have been switched to amlodipine and carvedilol. Make sure you follow-up with the nephrology team. They will help decide if lisinopril should be restarted. Follow up with the Wound Care Clinic to check up on the abscess. Assessment: As above. Clinically stable. Back to baseline
== END 2025-01-27 14:58 | disposition home or self-care (01) | DRG 383 ==
LOC: HO.ED 17:10 → HO.EDOVER 19:40 → HO.IMC 01-22 15:31
PROVIDERS: Internal Medicine; Nurse Practitioner Family; Physician Assistant; Admitting Provider Internal Medicine; Emergency Provider Emergency Medicine; PCP Family Medicine; Visit Provider Hospitalist
DX: L03.317 Cellulitis of buttock (principal); N17.0 Acute kidney failure with tubular necrosis; E87.1 Hypo-osmolality and hyponatremia; E87.8 Other disorders of electrolyte and fluid balance, not elsewhere classified; K70.10 Alcoholic hepatitis without ascites; T36.8X5A Adverse effect of other systemic antibiotics, initial encounter; E86.0 Dehydration; F10.239 Alcohol dependence with withdrawal, unspecified; Y90.5 Blood alcohol level of 100-119 mg/100 ml; L02.31 Cutaneous abscess of buttock; I10 Essential (primary) hypertension; E83.42 Hypomagnesemia; Z79.899 Other long term (current) drug therapy
CPT/HCPCS: 36415; 74177; 76775; 80048; 80053; 80076; 80202; 80307; 81001; 82565; 82570; 83605; 83735; 83880; 83930; 83935; 84300; 85025; 85027; 85610; 85999; 86140; 87040; 93005; 99285; J1644; J1650; J2543; J2560; J3360; J3373; J3374; J3411; J3475; J7120; Q9967; S9485

== ENCOUNTER → 2025-01-21 16:35 | Outpatient (BNV) | payer OTHER, SELFPAY | PROVIDERS: Admitting Provider Internal Medicine; Emergency Provider Emergency Medicine; PCP Family Medicine; Visit Provider Radiology Diagnostic Radiology | DX: N17.9 Acute kidney failure, unspecified (principal) | CPT/HCPCS: 74177 ==

== ENCOUNTER → 2025-01-21 17:09 | Outpatient (BNV) | payer OTHER, SELFPAY | PROVIDERS: Admitting Provider Internal Medicine; Emergency Provider Emergency Medicine; PCP Family Medicine; Visit Provider Internal Medicine Cardiovascular Disease | DX: I45.4 Nonspecific intraventricular block (principal) | CPT/HCPCS: 93010 ==

== ENCOUNTER 2025-01-21 19:24 | Outpatient (BNV) | payer OTHER, SELFPAY | END 2025-01-25 09:33 | PROVIDERS: Admitting Provider Internal Medicine; Emergency Provider Emergency Medicine; PCP Family Medicine; Visit Provider Radiology Diagnostic Radiology | DX: N17.9 Acute kidney failure, unspecified (principal) | CPT/HCPCS: 76775 ==

== ENCOUNTER → 2025-01-21 19:24 | Outpatient (BNV) | payer OTHER, SELFPAY | PROVIDERS: Admitting Provider Internal Medicine; Emergency Provider Emergency Medicine; PCP Family Medicine; Visit Provider Physician Assistant | DX: L03.90 Cellulitis, unspecified (principal); E87.1 Hypo-osmolality and hyponatremia; F10.139 Alcohol abuse with withdrawal, unspecified; E83.42 Hypomagnesemia; L02.91 Cutaneous abscess, unspecified | CPT/HCPCS: 99223; 99232 ==

== ENCOUNTER → 2025-01-21 19:24 | Outpatient (BNV) | payer OTHER, SELFPAY | PROVIDERS: Admitting Provider Internal Medicine; Emergency Provider Emergency Medicine; PCP Family Medicine; Visit Provider Nurse Practitioner Family | DX: N17.9 Acute kidney failure, unspecified (principal) | CPT/HCPCS: 99222; 99232 ==

== ENCOUNTER 2025-02-08 11:48 | Outpatient (AMB) | payer OTHER, SELFPAY ==
--- NOTE | 2025-02-08 11:53 | HO.NEPHOV_ITS ---
Vital Signs 02/08/25 11:54 Weight 203 lb BP 122/78 Blood Pressure Location Lt brachial Position Sitting Pulse 77 Pulse Source Pulse Oximeter Pulse Oximetry (%) 96 Oxygen Delivery Method Room Air Intake [facility] Jigman Required: No Accompanied by: Self / Same As Patient Allergies No Known Allergies Allergy (Verified 02/08/25 11:55) HPI Comments Details: 65-year-old gentleman with past medical history of hypertension, alcohol abuse was recently hospitalized with a left gluteal abscess from 01/21/2025 till 01/27/2025. His hospital stay was complicated with vancomycin induced nephrotoxicity in the setting of lisinopril leading to acute kidney injury/ acute tubular necrosis. His baseline creatinine was normal, peaked to 4.48 and plateaued around 4.06 on discharge. Urinalysis was clean, urine eosinophil negative. No new issues, symptoms. 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[facility] Medical History (Updated 02/08/25 @ 12:00 by Mike Bro MD) Alcohol use disorder Social History Household Members: Children Housing: House Do you presently have visiting nurse or other home services: No Alcohol intake: current Alcohol intake frequency: 3 or more drinks per day Alcohol type: beer Comment: pt refused high fall alarms, steady gait, independent Patient Tobacco Use Status: Never used Tobacco service: No Review of Systems Const Details: Const : no body aches, no chills, no excessive sweating and no fatigue Eyes: no blurry vision and no change in vision ENT: no bleeding gums and no change in voice, no dizziness Card: no chest pain, no shortness of breath, no orthopnea, no PND Resp: no cough, no excessive phlegm production, no SOB GI: no abdominal pain and no nausea, no vomiting : no hematuria, no urinary frequency and no difficulty voiding Musc: no abnormal gait, no bone pain Neuro: no abnormal gait and no behavioral changes Psych: no behavioral changes and no change in appetite Endo: no change in body appearance, no cold intolerance Physical Exam Vital Signs: Last Vital Signs Pulse 77 02/08/25 11:54 Pulse Ox 96 02/08/25 11:54 Oxygen Delivery Method Room Air 02/08/25 11:54 General: not in any acute distress, comfortable, sitting on the chair Nutritional Appearance: well nourished and weight Eyes: normal position, no icterus Neck: No lymphadenopathy, no thyromegaly Resp: bilateral air entry equal, no added sounds present Cardio: normal S1, S2 heard, no murmur heard, no edema GI: soft, nontender, no guarding, no hepatosplenomegaly : bladder normal to inspection, bladder normal to palpation, no renal angle tenderness Skin: no rashes or lesions noted and elasticity normal Neuro: oriented to person, oriented to place, oriented to time and moves all extremities Results Reviewed Nephrology Results: Hgb, (14.0-18.0) 13.5 g/dl L 01/25/25 WBC, (4.8-10.8) 8.9 X10*3/uL 01/25/25 Plt Count, (160-400) 255 X10*3/uL 01/25/25 Sodium, (135-145) 137 mmol/L 01/27/25 Potassium, (3.3-5.1) 4.8 mmol/L 01/27/25 Chloride, (96-108) 104 mmol/L 01/27/25 Carbon Dioxide, (22-29) 26 mmol/L 01/27/25 BUN, (9-16) 25 mg/dL H 01/27/25 Creatinine, (0.5-1.4) 4.06 mg/dL H* 01/27/25 Calcium, (8.4-10.2) 9.1 mg/dL 01/27/25 Urine Protein, (Neg-Trace) Negative mg/dL 01/25/25 Urine Creatinine 30.55 mg/dL 01/25/25 Renal US 01/25/25 Assessment & Plan Assessment & Plan (1) JOSEPH (acute kidney injury): Code(s): N17.9 - Acute kidney failure, unspecified Category: Medical (2) HTN (hypertension): Code(s): I10 - Essential (primary) hypertension Category: Medical Plan Acute kidney injury: Secondary to vancomycin induced nephrotoxicity in the setting of lisinopril His baseline creatinine was normal, peaked to 4.48 and plateaued around 4.06 on discharge. Urinalysis was clean, urine eosinophil negative. We will repeat BMP, urine microalbumin creatinine ratio, urinalysis Hypertension: Blood pressure is well controlled, his blood pressures was slightly on the higher side during the hospitalization due to a component of alcohol withdrawal Lisinopril was transitioned to amlodipine and carvedilol 6.25 b.i.d. during the hospitalization. We will discontinue carvedilol for now. He does not have a family history of coronary artery disease, he is not a smoker, physically active. Asked him to restart the carvedilol if the systolic blood pressures are above 140 mmHg. For now does not need a follow up, we will check his BMP and decide Orders: Orders Magnesium Today I10 - Essential (primary) hypertension UA and rflx microscopic Today I10 - Essential (primary) hypertension Creatinine Urine Today I10 - Essential (primary) hypertension Basic Metabolic Panel Today I10 - Essential (primary) hypertension Microalbumin, Random (w Creat) Today I10 - Essential (primary) hypertension Total Protein Urine Random Today I10 - Essential (primary) hypertension Medications: Discontinued doxycycline monohydrate Discontinued Reason: Patient no longer taking 100 mg PO Q12H 9 days 18 caps 0RF amoxicillin-pot clavulanate 500-125 mg Discontinued Reason: Patient no longer taking 1 tab PO Q12H 9 days 18 tabs 0RF Coding Level of Care Code New Pt Level 4 (42655) Diagnoses JOSEPH (acute kidney injury) N17.9 HTN (hypertension) I10
[2025-02-08 11:54] VITALS: BP 122/78; PULSE 77; O2SAT 96
== END 2025-02-08 12:18 | disposition home or self-care (01) ==
LOC: HO.HKA 11:49
PROVIDERS: PCP Family Medicine; Visit Provider Internal Medicine Critical Care Medicine
DX: N17.9 Acute kidney failure, unspecified (principal); I10 Essential (primary) hypertension
CPT/HCPCS: 99204

== ENCOUNTER 2025-02-08 12:17 | Outpatient (REF) | payer OTHER, SELFPAY ==
[2025-02-08 13:17] LABS: Appearance Urine Clear; Glucose Urine UA Negative (Negative); PH 5.5 (5.0-9.0); Specific Gravity - Urine <= 1.005 (1.005-1.025); UMIC TRIGGER UA YES
[2025-02-08 13:54] LABS: Microalbum/Creatinine Ratio Ur 11.3 ug/mg cr (<30); Total Protein Urine Random < 7 mg/dL (<12)
[2025-02-08 13:59] LABS: Anion Gap 12 (12-20); Blood Urea Nitrogen 16 mg/dL (9-16); Calcium 9.1 mg/dL (8.4-10.2); Carbon Dioxide 27 mmol/L (22-29); Chloride 103 mmol/L (96-108); Estimated Glomerular Filt Rate 38; Magnesium 1.4 mg/dL (1.6-2.6); Potassium 3.9 mmol/L (3.3-5.1); Sodium 138 mmol/L (135-145)
== END 2025-02-08 12:18 | disposition home or self-care (01) ==
LOC: HO.10HDL 12:17
PROVIDERS: Visit Provider Internal Medicine Critical Care Medicine
DX: I10 Essential (primary) hypertension (principal)
CPT/HCPCS: 36415; 80048; 81001; 82043; 82570; 83735; 84156; 99202

== ENCOUNTER 2025-04-26 07:58 | Outpatient (REF) | payer OTHER, SELFPAY ==
[2025-04-26 10:57] LABS: Appearance Urine Clear; Glucose Urine UA Negative (Negative); PH 5.0 (5.0-9.0); Specific Gravity - Urine 1.020 (1.005-1.025); UMIC TRIGGER UA YES
[2025-04-26 10:59] LABS: Anion Gap 13 (12-20); Blood Urea Nitrogen 18 mg/dL (9-16); Calcium 9.3 mg/dL (8.4-10.2); Carbon Dioxide 26 mmol/L (22-29); Chloride 106 mmol/L (96-108); Estimated Glomerular Filt Rate > 60; Potassium 4.2 mmol/L (3.3-5.1); Sodium 141 mmol/L (135-145)
[2025-04-26 11:29] LABS: Total Protein Urine Random 9 mg/dL (<12)
== END 2025-04-26 07:59 | disposition home or self-care (01) ==
LOC: HO.10HDL 07:58
PROVIDERS: Visit Provider Internal Medicine Critical Care Medicine
DX: I12.9 Hypertensive chronic kidney disease with stage 1 through stage 4 chronic kidney disease, or unspecified chronic kidney disease (principal); N18.9 Chronic kidney disease, unspecified
CPT/HCPCS: 36415; 80048; 81001; 82043; 82570; 84156

== ENCOUNTER 2025-04-27 11:23 | Outpatient (AMB) | payer OTHER, SELFPAY ==
--- OUTSIDE RECORDS SUMMARY | 2025-04-24 23:59 | XMS_ITS | Continuity of Care Document ---
[facility] Address [address] [place] [id number]- Care Team Providers Care Pastrycook Name Role Phone Ld CHARLES, Travis Iverson Primary Care Physician [place] [facility] [place] [facility] [address] [place] [address]- Encounter Type: Triage Allergies, Adverse Reactions, Alerts No Known Allergies Immunizations Given and Recorded Vaccine Date Status Refusal Reason influenza virus vaccine, inactivated 1 03/10/25 Gi jam influenza virus vaccine, inactivated 2 03/12/23 Gi jam influenza virus vaccine, inactivated 04/20/22 Rito rded influenza virus vaccine, inactivated 06/29/21 Give n influenza virus vaccine, inactivated 3 03/13/18 Gi jam SARS-CoV-2 (COVID-19) mRNA BNT-162b2 vac 06/29/21 Given SARS-CoV-2 (COVID-19) mRNA BNT-162b2 vac 10/30/20 Recorded SARS-CoV-2 (COVID-19) mRNA BNT-162b2 vac 10/09/20 Recorded tetanus/diphtheria/pertussis, acel(Tdap) 11/03/14 Given tetanus/diphtheria/pertussis, acel(Tdap) 05/12/07 Recorded 1Result Comment: [facility]:[id number] Screening checklist reviewed with patient, negative for any contraindications. 2Result Comment: Flu [facility]#[id number] 3Result Comment: [03/13/2018] [facility] [id number] Medications amLODIPine 10 mg oral tablet 10 mg, 1, tablet, By Mouth, Daily, # 90 tablet, Refills 3, Tot. Refills 3, Maintenance, 04/21/25 4:42:00 PM EST, Route to Pharmacy Electronically, [facility]/pharmacy #[id number], Partial fill upon patient request if the prescription is for a schedule II opioid drug., 180.34, cm, 04/21/25 16:26:00 EST, Height Start Date: 04/21/25 Status: Ordered Medication Dispense Status: Completed Quantity: 90.0 Unit: tablet Total Allowed Fills: 4 Fills Dispensed: 0 carvedilol 6.25 mg oral tablet 6.25 mg, 1, tablet, By Mouth, 2 times a day, # 180 tablet, Refills 3, Tot. Refills 3, Maintenance, 04/21/25 4:43:00 PM EST, Route to Pharmacy Electronically, [facility]/pharmacy #[id number], Partial fill upon patient request if the prescription is for a schedule II opioid drug., 180.34, cm, 04/21/25 16:26:00 EST, Height Start Date: 04/21/25 Status: Ordered Medication Dispense Status: Completed Quantity: 180.0 Unit: tablet Total Allowed Fills: 4 Fills Dispensed: 0 Problem List Condition Confirmation Course Effective Dates Status Health St atus Informant Alcoholism Confirmed Active Essential hypertension Confirmed Active GERD (gastroesophageal reflux disease) Confirmed Active Status post bilateral knee replacements Confirmed Active Obese class I Confirmed Active 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 Patient Care team information Care Team Personnel Name: Gladys Quezada RN Position: [facility] OB RN Member Role: Primary Care Nurse Name: Travis Jaffe MD Position: [facility] Physician - Primary Care Member Role: PCP Address: [address] [place] [id number] Telecom: Care Team Related Persons Name: ADAM TILLMAN Name: SAVANNA TILLMAN Insurance Providers Guarantor name: PARTH BUSTILLOS [employer] [facility] Information #: 1 Payer: [facility] Direct Non Fields Payer Identifier: NA Member Number: [id number] Group Number: NA Subscriber Identifier: NA Relationship to Subscriber: self Coverage Type: NA Coverage Verification Date: NA Telecom: NA Address:
--- NOTE | 2025-04-27 11:27 | HO.NEPHOV ---
Vital Signs 04/27/25 11:28 Height 6 ft Weight 218 lb 8 oz BMI 29.6 BP 124/80 Blood Pressure Location Lt brachial Position Sitting Pulse 67 Pulse Source Pulse Oximeter Pulse Oximetry (%) 95 Oxygen Delivery Method Room Air Intake Visit Reasons: 2mon f/u-Conf Content Publisher Required: No Accompanied by: Self / Same As Patient Allergies No Known Allergies Allergy (Verified 04/27/25 11:27) HPI Comments Details: 65-year-old gentleman with past medical history of hypertension, alcohol abuse was recently hospitalized with a left gluteal abscess from 01/21/2025 till 01/27/2025. His hospital stay was complicated with vancomycin induced nephrotoxicity in the setting of lisinopril leading to acute kidney injury/ acute tubular necrosis. His baseline creatinine was normal, peaked to 4.48 and plateaued around 4.06 on discharge, he was seen in the renal Clinic in February and his creatinine was 1.79, repeat creatinine yesterday has decreased to 0.95. Urinalysis clean, urine eosinophil negative. No new issues, symptoms. 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[facility] Medical History (Updated 02/08/25 @ 16:23 by Mike Bro MD) Alcohol use disorder Social History Household Members: Children Housing: House Do you presently have visiting nurse or other home services: No Alcohol intake: current Alcohol intake frequency: 3 or more drinks per day Alcohol type: beer Comment: pt refused high fall alarms, steady gait, independent Patient Tobacco Use Status: Never used Tobacco service: No Review of Systems Const Details: Const : no body aches, no chills, no excessive sweating and no fatigue Eyes: no blurry vision and no change in vision ENT: no bleeding gums and no change in voice, no dizziness Card: no chest pain, no shortness of breath, no orthopnea, no PND Resp: no cough, no excessive phlegm production, no SOB GI: no abdominal pain and no nausea, no vomiting : no hematuria, no urinary frequency and no difficulty voiding Musc: no abnormal gait, no bone pain Neuro: no abnormal movements, no weakness, no dizziness, no abnormal gait and no behavioral changes Psych: no behavioral changes and no change in appetite Endo: no change in body appearance and no fatigue Physical Exam General: not in any acute distress, comfortable, sitting on the chair Nutritional Appearance: well nourished and weight Eyes: normal position, no icterus Neck: No lymphadenopathy, no thyromegaly Resp: bilateral air entry equal, no added sounds present Cardio: normal S1, S2 heard, no murmur heard, no edema GI: soft, nontender, no guarding, no hepatosplenomegaly : bladder normal to inspection, bladder normal to palpation, no renal angle tenderness Skin: no rashes or lesions noted and elasticity normal Neuro: oriented to person, oriented to place, oriented to time and moves all extremities Results Reviewed Nephrology Results: Hgb, (14.0-18.0) 13.5 g/dl L 01/25/25 WBC, (4.8-10.8) 8.9 X10*3/uL 01/25/25 Plt Count, (160-400) 255 X10*3/uL 01/25/25 Sodium, (135-145) 141 mmol/L 04/26/25 Potassium, (3.3-5.1) 4.2 mmol/L 04/26/25 Chloride, (96-108) 106 mmol/L 04/26/25 Carbon Dioxide, (22-29) 26 mmol/L 04/26/25 BUN, (9-16) 18 mg/dL H 04/26/25 Creatinine, (0.5-1.4) 0.95 mg/dL 04/26/25 Calcium, (8.4-10.2) 9.3 mg/dL 04/26/25 Urine Protein, (Neg-Trace) Negative mg/dL 04/26/25 Urine Creatinine 101.51 mg/dL 04/26/25 Renal US 01/25/25 Assessment & Plan Assessment & Plan (1) HTN (hypertension): Code(s): I10 - Essential (primary) hypertension Category: Medical (2) JOSEPH (acute kidney injury): Code(s): N17.9 - Acute kidney failure, unspecified Category: Medical Plan Acute kidney injury: Secondary to vancomycin induced nephrotoxicity in the setting of lisinopril His baseline creatinine was normal, peaked to 4.48 and plateaued around 4.06 on discharge on 01/27/2025; it decreased to 1.79 in February and 0.95 yesterday Urinalysis clean, urine eosinophil negative; no microalbuminuria or proteinuria. Hypertension: Blood pressure is well controlled; He does not have a family history of coronary artery disease, he is not a smoker, physically active. Continue amlodipine 10 mg daily. will followup as and when needed, doesnt need a followup appointment for now. Coding Level of Care Code Est Pt Level 4 (37451) Diagnoses HTN (hypertension) I10 JOSEPH (acute kidney injury) N17.9
[2025-04-27 11:28] VITALS: BP 124/80; PULSE 67; O2SAT 95; BMI 29.6
== END 2025-04-27 16:52 | disposition home or self-care (01) ==
LOC: HO.HKA 11:24
PROVIDERS: PCP Family Medicine; Visit Provider Internal Medicine Critical Care Medicine
DX: I10 Essential (primary) hypertension (principal); N17.9 Acute kidney failure, unspecified
CPT/HCPCS: 99214

== ENCOUNTER → 2025-04-27 11:23 | Outpatient (BNVA) | payer OTHER, SELFPAY | PROVIDERS: PCP Family Medicine; Visit Provider Internal Medicine Critical Care Medicine | DX: I10 Essential (primary) hypertension (principal); N17.9 Acute kidney failure, unspecified | CPT/HCPCS: 99212 ==